=== PATIENT | male | born 1950 | race Caucasian/White ===

== ENCOUNTER 2020-03-13 08:45 | Day surgery (SDC) | payer OTHER | END 2020-03-13 23:35 | disposition home or self-care (01) | LOC: WOUND 08:45 | DX: S30.810A Abrasion of lower back and pelvis, initial encounter (principal); F17.210 Nicotine dependence, cigarettes, uncomplicated; X58.XXXA Exposure to other specified factors, initial encounter | CPT/HCPCS: G0463 ==

== ENCOUNTER 2020-06-08 20:43 | Inpatient (IN) | payer OTHER ==
[~2020-06-08] VITALS: Ht 170.2 cm; Wt 114.8 kg
[2020-06-08 21:22] LABS: BASOPHILS ABSOLUTE AUTO 0.02 K/mm3 (0.00-0.23); BASOPHILS PERCENT AUTO 0 % (0-2); EOSINOPHILS ABSOLUTE AUTO 0.01 K/mm3 (0.00-0.68); EOSINOPHILS PERCENT AUTO 0 % (0-6); Hematocrit 39.4 % (37.0-53.0); Hemoglobin 12.3 g/dL (13.5-17.5); IMMATURE GRAN ABSOLUTE AUTO 0.06 K/mm3 (0.00-0.10); IMMATURE GRAN PERCENT AUTO 1 % (0-1); LYMPHOCYTES ABSOLUTE AUTO 0.96 K/mm3 (0.84-5.20); LYMPHOCYTES PERCENT AUTO 8 % (21-46); MONOCYTES ABSOLUTE AUTO 0.49 K/mm3 (0.16-1.47); MONOCYTES PERCENT AUTO 4 % (4-13); Mean Corpuscular HGB 29.7 pg (26.0-34.0); Mean Corpuscular HGB Conc 31.2 g/dL (31.5-36.5); Mean Corpuscular Volume 95 fL (80-100); Mean Platelet Volume 9.1 fL (9.1-12.4); NEUTROPHILS ABSOLUTE AUTO 10.37 K/mm3 (1.96-9.15); NEUTROPHILS PERCENT AUTO 87 % (41-73); Platelet Count 295 K/mm3 (150-400); RDW Standard Deviation 49.4 fL (35.1-46.3); Red Blood Cell Count 4.14 M/mm3 (4.30-5.90); White Blood Cell Count 11.91 K/mm3 (4.00-11.30)
[2020-06-08] MEDS ORDERED: ATOR20 PO (21:42)
[2020-06-08] MEDS ORDERED: CARV3.125 PO (21:42)
[2020-06-08 21:44] LABS: Alanine Aminotransfer (ALT/SGP 24 U/L (12-78); Albumin, Blood 2.7 g/dL (3.4-5.0); Albumin/Globulin Ratio 0.6 (0.8-1.8); Alk Phos 56 U/L (50-136); Anion Gap 6 mmol/L (6-16); Aspartate Aminotrans (AST/SGOT 20 U/L (12-37); Bilirubin, Total 0.5 mg/dL (0.1-1.0); Blood Urea Nitrogen 17 mg/dL (8-24); Bun/Creatinine Ratio 42.5 (12.0-20.0); CO2, Blood 29 mmol/L (21-32); Calcium, Blood 8.6 mg/dL (8.5-10.1); Chloride, Blood 104 mmol/L (98-108); Globulin, Blood 4.2 g/dL (2.2-4.0); Glomerular Filtration Rate >60 (60-); Glucose, Blood 102 mg/dL (70-99); Magnesium, Blood 1.5 mg/dL (1.6-2.4); Potassium, Blood 2.9 mmol/L (3.5-5.5); Sodium, Blood 139 mmol/L (136-145); Total Protein, Blood 6.9 g/dL (6.4-8.2); Troponin I <0.015 ng/mL (0.000-0.040)
[2020-06-08] MEDS ORDERED: DOXE25 PO (21:45)
[2020-06-08] MEDS ORDERED: GABA300 PO (21:46)
[2020-06-08] MEDS ORDERED: CODACE30 PO (21:49)
[2020-06-08 21:53] LABS: PCO2 Arterial 57.3 mmHg (35-45); PO2 Arterial 85.6 mmHg (80-100); pH Blood Arterial 7.33 (7.35-7.45)
[2020-06-08 22:20] LABS: Influenza A, PCR Negative (NEGATIVE); Influenza B, PCR Negative (NEGATIVE); Resp Syncytial Virus, PCR Negative (NEGATIVE); SARS-Cov-2 (COVID-19) PCR, MMC Negative (NEGATIVE)
--- NOTE | 2020-06-09 02:19 | NUR ---
ASSUMED CARE OF PATIENT AT [facility] 0037 FROM ED RN KADE. PATIENT ARRIVED TO UNIT VIA STRETCHER; TRANSFER VIA SLIDE SHEET AND MAX ASSIST FROM ED TO PCU STRETCHER. PATIENT DROWSY; FALLS ASLEEP MID SENTENCE; ALERT AT TIMES. PATIENT DENIES PAIN, DIZZINESS OR NAUSEA. PATIENT REPORT NUMBNESS TO HANDS OFF AND ON. NSR ON TELE; OXYGEN SATURATION ABOVE 90% ON 4LPM VIA NC. SEPSIS BOLUS STARTED. PHOTOS TAKEN OF LEGS; ADMITTED FOR CELLULITIS. PATIENT REPORTS NOT ABLE TO VOID AT THIS TIME; ATTENDS IN PLACE DRY. ADMISSION COMPLETE. PATIENT CURRENTLY RESTING IN BED; CALL LIGHT IN REACH; BED IN LOWEST POSISTION; BED ALARM ON.
[2020-06-09 04:14] LABS: BASOPHILS ABSOLUTE AUTO 0.06 K/mm3 (0.00-0.23); BASOPHILS PERCENT AUTO 1 % (0-2); EOSINOPHILS ABSOLUTE AUTO 0.04 K/mm3 (0.00-0.68); EOSINOPHILS PERCENT AUTO 0 % (0-6); Hematocrit 44.2 % (37.0-53.0); Hemoglobin 12.9 g/dL (13.5-17.5); IMMATURE GRAN PERCENT AUTO 1 % (0-1); LYMPHOCYTES ABSOLUTE AUTO 0.87 K/mm3 (0.84-5.20); LYMPHOCYTES PERCENT AUTO 7 % (21-46); MONOCYTES ABSOLUTE AUTO 0.39 K/mm3 (0.16-1.47); MONOCYTES PERCENT AUTO 3 % (4-13); Mean Corpuscular HGB 29.6 pg (26.0-34.0); Mean Corpuscular HGB Conc 29.2 g/dL (31.5-36.5); Mean Platelet Volume 9.2 fL (9.1-12.4); NEUTROPHILS ABSOLUTE AUTO 11.22 K/mm3 (1.96-9.15); NEUTROPHILS PERCENT AUTO 88 % (41-73); Platelet Count 281 K/mm3 (150-400); RDW Coefficient Variation 14.2 % (11.7-14.2); RDW Standard Deviation 53.6 fL (35.1-46.3); Red Blood Cell Count 4.36 M/mm3 (4.30-5.90); White Blood Cell Count 12.68 K/mm3 (4.00-11.30)
[2020-06-09 04:19] LABS: Mean Corpuscular Volume 101 fL (80-100)
[2020-06-09 04:34] LABS: Alanine Aminotransfer (ALT/SGP 29 U/L (12-78); Albumin, Blood 2.6 g/dL (3.4-5.0); Albumin/Globulin Ratio 0.6 (0.8-1.8); Alk Phos 66 U/L (50-136); Anion Gap 5 mmol/L (6-16); Aspartate Aminotrans (AST/SGOT 33 U/L (12-37); Bilirubin, Total 0.5 mg/dL (0.1-1.0); Blood Urea Nitrogen 15 mg/dL (8-24); Bun/Creatinine Ratio 44.5 (12.0-20.0); CO2, Blood 29 mmol/L (21-32); Calcium, Blood 8.3 mg/dL (8.5-10.1); Chloride, Blood 105 mmol/L (98-108); Creatinine, Blood 0.34 mg/dL (0.60-1.20); Globulin, Blood 4.6 g/dL (2.2-4.0); Glomerular Filtration Rate >60 (60-); Glucose, Blood 105 mg/dL (70-99); Magnesium, Blood 2.1 mg/dL (1.6-2.4); Potassium, Blood 3.8 mmol/L (3.5-5.5); Sodium, Blood 139 mmol/L (136-145); Total Protein, Blood 7.2 g/dL (6.4-8.2); Troponin I <0.015 ng/mL (0.000-0.040)
--- NOTE | 2020-06-09 04:56 | NUR ---
PATIENT CALLED TO REPORT FENTANYL GIVEN <30 MINUTES AGO IS NOT LONGER HELPING; PAIN IN LEFT FOOT RELATED TO CELLULITIS. PLACED CALL TO HOSPITALIST; WAITING CALL BACK.
--- NOTE | 2020-06-09 06:02 | NUR ---
PAIN CONTROLLED WITH DILAUDID. PATIENT SLEEPING. SLEPT ABOUT FOUR HOURS LAST NIGHT. VSS.
[2020-06-09 09:18] LABS: Source, Urine Catheter
[2020-06-09 09:23] LABS: Appearance, Urine Hazy (Clear); Blood, Urine 2+ (Neg); Color, Urine Yellow (P-Yellow); Glucose Qualitative, Urine Neg (Neg); Ketones, Urine 1+ (Neg); Leukocyte Esterase, Urine 2+ (Neg); Nitrite, Urine Pos (Neg); Protein, Urine 2+ (Neg); Specific Gravity, Urine 1.025 (1.003-1.022); Urobilinogen, Urine 2+ (Normal)
[2020-06-09 09:45] LABS: Bilirubin, Urine 1+ (Neg)
[2020-06-09 09:52] LABS: Squamous Epithelial Cells Rare /hpf (Few); White Blood Cells, Urine 25-50 /hpf (0-5)
[2020-06-09 09:53] LABS: Bacteria Many /hpf
--- NOTE | 2020-06-09 19:23 | NUR ---
SHIFT SUMMARY: PT LEVEL OF ALERTNESS IMPROVED T/OUT SHIFT. PT NOW A&OX4, RESP EVEN AND UNLABORED, PT TRANSITIONED TO ROOM AIR AND TOLERATING WELL. SINUS RHYTHM ON MONITOR. PT FOUND TO BE FEBRILE IN AFTERNOON, MEDICATED PER EMAR. SEPSIS FLUID INFUSION COMPLETE THIS AM, MAINTENANCE FLUIDS INFUSING W/OUT DIFFICULTY. PT RESTING QUIETLY IN BED WITH TV ON. BEDSIDE REPORT GIVEN TO MEGAN MEMBRENO.
--- NOTE | 2020-06-10 05:48 | NUR ---
SHIFT SUMMARY NO ACUTE CHANGES THIS SHIFT. VSS. PT REMAINS AXO. REMAINS IN SR WITH PAC'S. L LEG AND R FOOT REMAIN SWOLLEN AND RED, PT DOESN'T C/O OF PAIN OFTEN TO THESE AREAS BUT IT IS NOTED. PT WAS ON RA AT BEGINNING OF SHIFT BUT HAS REQUIRED 2-3L NC TOWARDS END OF SHIFT. NO CHANGE IN LUNG SOUNDS NOTED. PT BEING TURNED WHEN ALLOWING. POWERGLIUDE REMAINS PATENT AND DRAWING BLOOD. REMAINS CONTINENT, SMALL VOIDS. OTHERWISE, PT RESTING IN ROOM. USES CALL LIGHT APPROIPRIATELY. WILL CONTINUE TO MONITOR UNTIL SHIFT CHANGE.
--- NOTE | 2020-06-10 18:07 | NUR ---
SHIFT SUMMARY; ASSUMED CARE AT 0700, REPORT FROM MEGAN ARAMBULA. A/A/OX4, 3L 02 VIA ME, LUNGS CLEAR TO WHEEZY IN MID MORNING. LASIX GIVEN PER ORDERS. NS AT 75ML/HR PER ORDERS. BILATERAL LLE REDNESS AND SWELLING. STATUS CHANGED TO MEDICAL TODAY, VSS, NO ACUTE MEDICAL CHANGES, WILL CONTINUE TO MONITOR AND TREAT UNTIL CHANGE OF SHIFT.
--- NOTE | 2020-06-10 20:10 | NUR ---
TRANSFER FROM PCU PT ARRIVED TO 356 @1999 FROM [facility] 10. RECIEVED REPORT FROM TYESHA GUZMAN. REPORTS 12/16 PAIN IN LLE. WILL MEDICATE & MONITOR PT.
--- NOTE | 2020-06-10 20:58 | NUR ---
TRANSFER TO MEDICAL FLOOR SHIFT START: PT AXO. ON 2LNC, NS INFUSING PER EMAR INTO POWERGLIDE. STATES BEING COMFORTABLE IN BED. CONTINUES WITH SWELLING/REDNESS DUE TO CELLULITIS IN L LEG AND R FOOT. OTHERWISE PT IN ROOM WATCHING TV. REPORT CALLED TO CAROLA ESPINAL. PT TRANSPORTED TO [facility] WITH ALL MEDS, BELONGINGS, AND CHART BY [employer] SYSTEMS MANAGER'S.
--- NOTE | 2020-06-11 07:43 | NUR ---
SHIFT SUMMARY AOX4. FOLLOWS DIRECTIONS. HAS SLURRED SPEECH BECAUSE HE DOESN'T HAVE TEETH. VSS. PT ON 2L O2 c SPO2 >90% (RA @BASELINE), PT DESAT TO LOW 70'S WHEN NC TAKEN OFF, SPO2 INCREASED ABOVE 90% WITHIN MIN OF REAPPLYING O2. LUNGS HAVE EXPIRATORY WHEEZES & CRACKLES IN BASES. PT DIAPHORETIC. REPORTING HUFFMAN T/O NIGHT. HAS +3/4 EDEMA IN LLE & +2 EDEMA IN RLE, ALONG c GENERALIZED EDEMA T/O BODY. INFORMED DR CHANCE & HE WAS CONCERED PT WAS FLUID OVERLOADED, HE DC'D IV FLUIDS & ORDERED A OT DOSE 60MG IV LASIX. PT HAS VOIDED ROUGHLY 1250ML SINCE LASIX. LLE IS RED UP TO MID THIGH, HOT TO TOUCH, SWOLLEN, PAINFUL & I OUTLINED c MARKER TO MAKE SURE REDNESS WASN'T INCREASING. CALL LIGHT IN REACH & PT ABLE TO MAKE NEEDS KNOWN.
[2020-06-11 08:15] LABS: Anion Gap 2 mmol/L (6-16); Blood Urea Nitrogen 14 mg/dL (8-24); Bun/Creatinine Ratio 39.5 (12.0-20.0); CO2, Blood 34 mmol/L (21-32); Calcium, Blood 8.2 mg/dL (8.5-10.1); Chloride, Blood 102 mmol/L (98-108); Creatinine, Blood 0.35 mg/dL (0.60-1.20); Glomerular Filtration Rate >60 (60-); Glucose, Blood 93 mg/dL (70-99); Potassium, Blood 3.5 mmol/L (3.5-5.5); Sodium, Blood 138 mmol/L (136-145)
--- NOTE | 2020-06-11 14:00 | NUR ---
[facility]IAL [facility] CARE VISIT - REFERRAL RECEIVED FOR S/S MANAGEMENT, DUE TO MEDICALLY FRAGILE STATUS ON ADMIT WITH SEPSIS, LLE EXTREMITY CELLULITIS, ALTERED LOC/ENCEPHALOPATHY, WEAKNESS. PT IS LYING SUPINE, FLAT IN BED. HE IS AWAKE AND ORIENTED DURING MY VISIT. I HAD FOUND A PREVIOUSLY COMPLETED POLST IN PT'S EMR, COMPLETED WITH HIS PCP IN 2016 REQUESTING DNR STATUS AND COMFORT CARE, NO FEEDING TUBE OR ARTIFICIAL NUTRITION/HYDRATION. PT REPORTS HE IS HURTING ALL OVER, ESPECIALLY HIS BACK, "I AM NOT USED TO LYING IN BED LIKE THIS FOR SO LONG". PT REPORTS BEING UP IN A WHEEL CHAIR MOST OF THE TIME AT HOME AT [facility]. HE DOES NOT RECALL SEEING PT/OT WHILE HERE YET. REVIEWED PT'S POLST WITH HIM ALSO AND HE CONFIRMS THAT HE DOES NOT WANT ANY RESUSCITATION EFFORT PERFORMED ON HIM. HE IS AGREEABLE TO THE CURRENT TREATMENT OF HIS SEPSIS AND CELLULITIS. REPORT GIVEN TO RN AND ON MY VISIT. REQUESTED AND OBTAINED VERBAL ORDERS FOR DNR AND PT/OT EVAL AND TREAT. RN IN TO ASSESS PAIN AND MEDICATE FOR PAIN PER eMAR. COPY OF PT'S POLST PROVIDED AND PLACED ON CHART BY RN.
--- NOTE | 2020-06-11 16:26 | NUR ---
PT IS A/OX3, MUMBLES AT TIMES AND IS HARD TO UNDERSTAND, THE PT IS SLOW TO RESPOND, THE PT HAS BEEN BEDREST TODAY PT IS IN WORKING WITH THE PHYSICALTHERAPIST AT THIS TIME, THE PT APPEARS TO BE BREATHING EASILY AT REST WITH O2 @ 2L/MIN, PTS LEFT LEG ELEVATED WHILE IN BED, PT WAS MEDICATED FOR PAIN IN LEFT LEG AND ALL OVER WITH TYLENOL #3, PT HAS A DEVELOPING COCYX SORE AND NEEDS TORN BE REPOSITIONED FREQUANTLY, CALL LIGHT IN REACH, WILL CONTINUE TO MONITOR AND ASSESS FOR CHANGES.
[2020-06-12 05:27] LABS: Anion Gap 2 mmol/L (6-16); Blood Urea Nitrogen 13 mg/dL (8-24); Bun/Creatinine Ratio 33.9 (12.0-20.0); CO2, Blood 38 mmol/L (21-32); Calcium, Blood 8.8 mg/dL (8.5-10.1); Chloride, Blood 98 mmol/L (98-108); Creatinine, Blood 0.38 mg/dL (0.60-1.20); Glomerular Filtration Rate >60 (60-); Glucose, Blood 88 mg/dL (70-99); Potassium, Blood 3.5 mmol/L (3.5-5.5); Sodium, Blood 138 mmol/L (136-145)
--- NOTE | 2020-06-12 05:43 | NUR ---
SHIFT SUMMARY- PT. A&OX3, SPEECH GARBLED, CAN BE DIFFICULT TO UNDERSTAND. LLE RED AND SWOLLEN, C/O PAIN 02/15. MEDICATED WITH DILAUDID PER ORDER WITH GOOD EFFECT. PT. ASLEEP MOST OF THE NIGHT, NO APPARENT DISTRESS NOTED. USES URINAL WHILE IN BED WITH ASSISTANCE. PT. APPEARS TO BE DEVELOPING SORE ON COCCYX, REFUSING TO BE REPOSITIONED. ENCOURAGED PT. TO HAVE PILLOW PLACED ON ONE SIDE OF HIP TO HELP REDUCE PRESSURE OFF OF HIS BOTTOM. PT. AGREED, REPOSITIONED ONTO RT SIDE. DENIED ANY OTHER NEEDS DURING THE NIGHT, VSS. CALL LIGHT WITHIN REACH AND SIDE RAILS UPX2. WILL CONT TO MONITOR.
--- NOTE | 2020-06-12 09:45 | NUR ---
TELEPHONE ORDER FROM DR. RICHTER 06/10 AT 0844 ENTERED UNDER THE WRONG PROVIDER, UPDATED AT THIS TIME.
--- NOTE | 2020-06-12 16:16 | NUR ---
PT IS A/OX3, PLEASANT AND COOPERATIVE, QAGAN TAYAGUNGIN, NEEDS HEARTING AID BATTERIES, PT IS UP WITH ASSIST TO THE BSC, PT DURING THE DAY HAS BEEN USEING THE CALL SYSTEM APPROPRIATLY, PT IS MILDLY SOB AT TIMES WITH ACTIVITY, TODAY IS STILL NEEDING O2 AT 2L/MIN, SPO2 IN THE LOW 90'S WITH O2, APPARANTLY WHEN GETTING UP THIS AM THE PT STUBBED HIS RIGHT LITTLE TOE CAUSING IT TO BLEED UNDER THE NAIL, THE AREA WAS CLEANED AND A BANDAID WAS APPLIED, THE PT DENIED ANY PAIN T/O THE DAY, CALL LIGHT IN REACH, WILL CONTINUE TO MONITOR AND ASSESS FOR CHANGES
--- NOTE | 2020-06-12 16:30 | NUR ---
PT IS A/OX3, PLEASANT AND COOPERATIVE, THE PT IS BEDREST AT THIS TIME, THE PT DECLINES REPOSTIONING FOR MOST OF THE DAY, THE PHYSICAL AND OCCUPATIONAL THERAPIST BOTH WORKED WITH THE PT THE PT WAS COOPERATIVE, THE PT APPEARS TO BE BREATHING EASILY ON O2 AT REST, PT LEFT LEG IS ELEVATED AT ALL TIMES WHILE IN BED, THE SWELLING AND REDNESS IN THE PT LE APPEARS TO BE IMPROVING SOMEWHAT, THE PT WAS MEDICATED FOR PAIN X1 SO FAR TODAY WITH TYLENOL #3, CALL LIGHT IN REACH, WILL CONTINUE TO MONITOR AND ASSESS FOR CHANGES
--- NOTE | 2020-06-13 05:35 | NUR ---
SHIFT SUMMARY- PT. HAD A RESTFUL NIGHT. MEDICATED FOR PAIN WITH TYLENOL #3 1X, WITH GOOD EFFECT. LLE ELEVATED ON PILLOW ALL SHIFT, PT. REFUSES REPOSITIONING. DENIED ANY OTHER NEEDS DURING THE NIGHT. SLEPT WELL T/O THE NIGHT, VSS. CALL LIGHT WITHIN REACH AND SIDE RAILS UPX2. WILL CONT TO MONITOR.
[2020-06-13] MEDS ORDERED: CEPH500 PO (15:45)
[2020-06-13] MEDS ORDERED: CRANBERRY CONC1 EAC1 PO (15:46)
[2020-06-13] MEDS ORDERED: VISBIOME 112.51 EACH PO (15:47)
--- NOTE | 2020-06-13 18:35 | NUR ---
DISCHARGE: transported to SNF left via , REVIEWED: medications, orders, discharge instructions, appointments, removed iv prior to leaving with no difficulties
== END 2020-06-13 17:40 | disposition home or self-care (01) | DRG 871 ==
LOC: ER 20:43 → PCU 23:10 → MEDS 06-10 19:55 → ENPENDDIS 06-13 09:47 → MEDS 06-13 17:40
PROVIDERS: Emergency Medicine; Internal Medicine; ADMIT Family Medicine
DX: A41.9 Sepsis, unspecified organism (principal); G92 Toxic encephalopathy; J96.21 Acute and chronic respiratory failure with hypoxia; L03.116 Cellulitis of left lower limb; N39.0 Urinary tract infection, site not specified; J98.11 Atelectasis; I10 Essential (primary) hypertension; J44.9 Chronic obstructive pulmonary disease, unspecified; R65.20 Severe sepsis without septic shock; E78.5 Hyperlipidemia, unspecified; G89.29 Other chronic pain; Z20.822 Contact with and (suspected) exposure to COVID-19; K21.9 Gastro-esophageal reflux disease without esophagitis; E66.9 Obesity, unspecified; G25.81 Restless legs syndrome; Z68.37 Body mass index [BMI] 37.0-37.9, adult
CPT/HCPCS: 0241U; 36415; 36600; 71045; 80048; 80053; 81001; 82803; 82947; 83605; 83735; 83880; 84145; 84484; 85025; 87040; 87086; 93005; 93010; 93971; 94644; 94761; 96365; 96366; 96367; 96368; 97110; 97162; 97165; 97530; 97535; 99285-25; A9270; C1751; J0690; J0696; J1170; J1650; J1940; J3010; J3370; J3475; J3480; J7030; J7050; J7060

== ENCOUNTER 2020-06-27 00:43 | Day surgery (SDC) | payer OTHER ==
[~2020-06-27 00:43] MED LIST: ATOR20 PO; CARV3.125 PO; CEPH500 PO; CODACE30 PO; CRANBERRY CONC1 EAC1 PO; DOXE25 PO; GABA300 PO; VISBIOME 112.51 EACH PO
== END 2020-06-27 23:50 | disposition home or self-care (01) ==
LOC: WOUND 00:43
DX: L03.116 Cellulitis of left lower limb (principal); R60.9 Edema, unspecified; F17.210 Nicotine dependence, cigarettes, uncomplicated
CPT/HCPCS: G0463

== ENCOUNTER 2020-07-19 09:22 | Inpatient (IN) | payer OTHER, MEDICARE ==
[~2020-07-19] VITALS: Ht 170.2 cm; Wt 103.0 kg
[2020-07-19 10:11] LABS: Hematocrit 44.5 % (37.0-53.0); Hemoglobin 13.6 g/dL (13.5-17.5); Mean Corpuscular HGB 29.2 pg (26.0-34.0); Mean Corpuscular HGB Conc 30.6 g/dL (31.5-36.5); Mean Corpuscular Volume 96 fL (80-100); Mean Platelet Volume 10.3 fL (9.1-12.4); Platelet Count 285 K/mm3 (150-400); RDW Standard Deviation 56.2 fL (35.1-46.3); Red Blood Cell Count 4.65 M/mm3 (4.30-5.90); White Blood Cell Count 10.17 K/mm3 (4.00-11.30)
[2020-07-19 10:31] LABS: BAND PERCENT MAN 9 % (0-8); BASOPHILS PERCENT MAN 0 % (0-2); EOSINOPHILS PERCENT MAN 5 % (0-6); LYMPHOCYTES ABSOLUTE MAN 1.11 K/mm3 (0.84-5.20); LYMPHOCYTES PERCENT MAN 11 % (21-46); MONOCYTES ABSOLUTE MAN 0.71 K/mm3 (0.16-1.47); MONOCYTES PERCENT MAN 7 % (4-13); NEUTROPHILS ABSOLUTE MAN 7.83 K/mm3 (1.96-9.15); SEG NEUTROPHILS PERCENT MAN 68 % (41-73); TOTAL CELLS COUNTED 100
[2020-07-19 10:33] LABS: Alanine Aminotransfer (ALT/SGP 22 U/L (12-78); Albumin, Blood 2.4 g/dL (3.4-5.0); Albumin/Globulin Ratio 0.5 (0.8-1.8); Alk Phos 100 U/L (50-136); Anion Gap 2 mmol/L (6-16); Aspartate Aminotrans (AST/SGOT 43 U/L (12-37); Bilirubin, Total 0.3 mg/dL (0.1-1.0); Blood Urea Nitrogen 17 mg/dL (8-24); Bun/Creatinine Ratio 49.7 (12.0-20.0); CO2, Blood 36 mmol/L (21-32); Calcium, Blood 8.7 mg/dL (8.5-10.1); Chloride, Blood 105 mmol/L (98-108); Creatinine, Blood 0.34 mg/dL (0.60-1.20); Globulin, Blood 4.8 g/dL (2.2-4.0); Glomerular Filtration Rate >60 (60-); Glucose, Blood 88 mg/dL (70-99); Potassium, Blood 3.9 mmol/L (3.5-5.5); Sodium, Blood 143 mmol/L (136-145); Total Protein, Blood 7.2 g/dL (6.4-8.2)
[2020-07-19 10:39] LABS: Source, Urine Catheter
[2020-07-19 10:44] LABS: Blood, Urine 3+ (Neg); Glucose Qualitative, Urine Neg (Neg); Ketones, Urine 1+ (Neg); Leukocyte Esterase, Urine 1+ (Neg); Nitrite, Urine Neg (Neg); Protein, Urine 1+ (Neg); Urobilinogen, Urine 2+ (Normal)
[2020-07-19 11:19] LABS: Bilirubin, Urine 1+ (Neg)
[2020-07-19 11:20] LABS: Appearance, Urine Clear (Clear); Color, Urine Yellow (P-Yellow)
[2020-07-19 11:23] LABS: Bacteria Few /hpf; Squamous Epithelial Cells Rare /hpf (Few)
[2020-07-19] MEDS ORDERED: GUAI600T33 PO (11:24)
[2020-07-19 13:21] LABS: International Normalized Ratio 1.18; Prothrombin Time Results 12.5 Sec (9.7-11.5)
[2020-07-19] MEDS ORDERED: Mirapex1 MG PO (14:02)
[2020-07-19] MEDS ORDERED: OXYACE7.5T PO ×2 (14:02→14:15)
[2020-07-19] MEDS ORDERED: TUMS500 MG PO (14:03)
[2020-07-19] MEDS ORDERED: ACET500 PO (14:03)
[2020-07-19] MEDS ORDERED: FENO145 PO (14:07)
[2020-07-19] MEDS ORDERED: GABA300 PO (14:09)
[2020-07-19] MEDS ORDERED: DOXE75C PO (14:09)
[2020-07-19] MEDS ORDERED: Prilosec10 M1 PO (14:09)
[2020-07-19] MEDS ORDERED: NYSTATIN15 GM TOP (14:10)
[2020-07-19] MEDS ORDERED: Inzo Antifun141.7 GM TOP (14:10)
[2020-07-19] MEDS ORDERED: CARV3.125 PO (14:11)
[2020-07-19] MEDS ORDERED: ATORVASTATIN CA20 MG PO (14:11)
[2020-07-19] MEDS ORDERED: ASPI81CH PO (14:11)
[2020-07-19] MEDS ORDERED: BISMATROL525 MG/15 PO (14:13)
[2020-07-19] MEDS ORDERED: BISA10S PR (14:14)
[2020-07-19] MEDS ORDERED: LOPE2C PO (14:14)
[2020-07-19] MEDS ORDERED: DULCOLAX400 MG/5 M PO (14:15)
[2020-07-19] MEDS ORDERED: ICY HOT TOP (14:16)
[2020-07-19] MEDS ORDERED: PAROEX473 ML PO (14:18)
[2020-07-19 15:14] LABS: U Amphetamine Screen Not Detected; U Barbituate Screen Not Detected; U Benzodiazapine Screen Not Detected; U Buprenorphine Screen Not Detected; U Cannabinoids Screen Not Detected; U Cocaine Screen Not Detected; U Methadone Screen Not Detected; U Methamphetamine Screen Not Detected; U Opiates Screen Not Detected; U Oxycodone Screen DETECTED; U Phencyclidine Screen Not Detected; U Propoxyphene Screen Not Detected
[2020-07-19 17:24] LABS: Influenza A, PCR NEGATIVE (NEGATIVE); Influenza B, PCR NEGATIVE (NEGATIVE); Resp Syncytial Virus, PCR NEGATIVE (NEGATIVE); SARS-Cov-2 (COVID-19) PCR, MMC NEGATIVE (NEGATIVE)
--- NOTE | 2020-07-19 19:00 | NUR ---
ASSUMED CARE NOTE: PT RESPONDS TO VERBAL AND PAINFUL STIMULI, IS ABLE TO FOLLOW COMMANDS. SLOW TO RESPOND QUESTIONS. CONFUSED, UNABLE TO RECALL RECENT EVENTS. ASK THE SAME QUESTIONS OVER AND OVER " WHY AM I HERE", " WHAT IS TODAY" "WHERE ARE WE GOING" PT WILL ALSO YELL OUT FOR HELP. LUNG SOUNDS COARSE T/O, WEAK COUGH NOTED. PT IS IN SR WITH HR IN THE 80'S, BP STABLE. TEMP 97.8. BEAR HUGGER REMOVED. PT HAS A WOUND TO RIGHT FOOT (SALINAS) THAT IS DRAINING PURULENT FLUID. WOUND WAS CLEANED WITH WOUND CLEANSER , ABD PAD AND KERLEX APPLIED. LUTHER PATENT, DRAINING TO GRAVITY.
--- NOTE | 2020-07-19 19:24 | NUR ---
PT SUMMARY: PT ARRIVED IN THE UNIT FROM [facility] VIA STRETCHER, SLIDE TRANSFERRED TP ICU BED REPORT RECEIVED FROM ALYSE Oro RN. PT IS ALERT AND ORIENTED ABLE TO STATE NAME KNOWS WHERE HE'S AT, AT BASELINE, VITALS HRR SR WITH PVC'S AND OCC PAC'S AT 70'S, BP SYSTOLIC 90-110'S, SATS ABOVE 95% ON 2L OF O2, HYPOTHERMIC AT 94.0F VIA TEMP PROBE BEAR HUGGER ON PT CURRENT TEMP NOW AT 96.0F. PT IS FULL CODE REQUESTED TO BE DNR AFTER DISCUSSING CODE STATUS PT STATED HE HAS SIGNED A PAPER AT [facility] NOT TO BE RESCUCITATED WHEN HIS HEART STOPS BEATING. CODE STATUS CHANGED TO DNR PER DR IRCHTER. PT HAS STAGE 2 PRESSURE ULCER ON BOTH BUTTOCKS, ULCERATION ON RIGHT LEG LEFT OPEN TO AIR. PT WAS GIVEN FENTANYL 25MCG DUE TO RIGHT LEG PAIN AND WAS EFFECTIVE, PT REMAINS NPO, NS RUNNING AT 100MLS/HR. LUTHER DRAINING DARK YELLOW URINE VIA GRAVITY, HAD [address] OUT[address] SCAN DONE, AWAITING FOR RESULTS. NO COMPLAINS AT THIS TIME, PT CURRENTLY RESTING, CALL LIGHTS IN REACH REPORT GIVEN TO MATEO GUZMAN
--- NOTE | 2020-07-19 23:25 | NUR ---
RT CALLED TO NT SUCTION PATIENT, MODERATE AMOUNTS OF YELLOW THICK SECTRETIONS NOTED.
[2020-07-20 03:44] LABS: BASOPHILS ABSOLUTE AUTO 0.05 K/mm3 (0.00-0.23); BASOPHILS PERCENT AUTO 1 % (0-2); EOSINOPHILS ABSOLUTE AUTO 0.15 K/mm3 (0.00-0.68); EOSINOPHILS PERCENT AUTO 2 % (0-6); Hematocrit 42.3 % (37.0-53.0); Hemoglobin 12.5 g/dL (13.5-17.5); IMMATURE GRAN ABSOLUTE AUTO 0.11 K/mm3 (0.00-0.10); IMMATURE GRAN PERCENT AUTO 1 % (0-1); LYMPHOCYTES ABSOLUTE AUTO 1.02 K/mm3 (0.84-5.20); LYMPHOCYTES PERCENT AUTO 12 % (21-46); MONOCYTES ABSOLUTE AUTO 0.65 K/mm3 (0.16-1.47); MONOCYTES PERCENT AUTO 8 % (4-13); Mean Corpuscular HGB Conc 29.6 g/dL (31.5-36.5); Mean Corpuscular Volume 98 fL (80-100); NEUTROPHILS ABSOLUTE AUTO 6.29 K/mm3 (1.96-9.15); NEUTROPHILS PERCENT AUTO 76 % (41-73); Platelet Count 288 K/mm3 (150-400); RDW Coefficient Variation 15.7 % (11.7-14.2); RDW Standard Deviation 56.6 fL (35.1-46.3); Red Blood Cell Count 4.31 M/mm3 (4.30-5.90); White Blood Cell Count 8.27 K/mm3 (4.00-11.30)
[2020-07-20 04:05] LABS: Alanine Aminotransfer (ALT/SGP 21 U/L (12-78); Albumin, Blood 2.4 g/dL (3.4-5.0); Albumin/Globulin Ratio 0.6 (0.8-1.8); Alk Phos 89 U/L (50-136); Anion Gap 3 mmol/L (6-16); Aspartate Aminotrans (AST/SGOT 26 U/L (12-37); Bilirubin, Total 0.2 mg/dL (0.1-1.0); Blood Urea Nitrogen 12 mg/dL (8-24); Bun/Creatinine Ratio 31.6 (12.0-20.0); CO2, Blood 34 mmol/L (21-32); Calcium, Blood 8.2 mg/dL (8.5-10.1); Chloride, Blood 111 mmol/L (98-108); Creatinine, Blood 0.38 mg/dL (0.60-1.20); Globulin, Blood 4.1 g/dL (2.2-4.0); Glomerular Filtration Rate >60 (60-); Glucose, Blood 60 mg/dL (70-99); Potassium, Blood 3.3 mmol/L (3.5-5.5); Sodium, Blood 148 mmol/L (136-145); Total Protein, Blood 6.5 g/dL (6.4-8.2)
--- NOTE | 2020-07-20 04:35 | NUR ---
CALLED REGARDING LOW K+ AND GLUCOSE 60. ORDERS GIVEN. WILL RECHECK GLUCOSE IN ONE HOUR
--- NOTE | 2020-07-20 06:37 | NUR ---
SHIFT SUMMARY : NO SIGNIFICANT CHANGES T/O SHIFT. PT REMIANS CONFUSED, HOWEVER COOPRATIVE AND ABLE TO FOLLOW COMMANDS. PT CONTINUES ON 2L OF 02 VIA NC, SPO2 ABOVE 90% PT REQUIRES NT SUCTION TO CLEAR SECRETIONS DUE TO WEAK COUGH. PT IS IN SR WITH PVC'S HR IN THE 80'S, BP STABLE. LUTHER PATENT, DRAINING TO GRAVITY, GOOD URINE OUTPUT THIS SHIFT. PT RECEVING K+ REPLACEMENT.
--- NOTE | 2020-07-20 08:56 | NUR ---
CHECKED PT'S BLOOD SUGAR THIS MORNING IT WAS 60 ON MORNING LABS. CBG WAS 59. INFORMED DR. MASON WHO ORDERED 1 AMP D50 AND THEN SHE WILL REVIEW CHART FOR FURTHER ORDERS. PT TOLERATED D50 WITHOUT PROBLEM AND REPEAT CBP 114. PT'S MENTATION UNCHANGED WHEN HYPOGLYCEMIC. STILL CONFUSED, ASKS THE SAME QUESTIONS REPEATEDLY. OXYGEN TITRATED DOWN BECAUSE PT WAS 100% ON 6L/NC AT START OF SHIFT. DOWN TO 3L/NC CURRENTLY WITH SPO2 MID 90S. FAM, RT NT SUCTIONED PT FOR SPUTUM SAMPLE AND BECAUSE PT WAS COMPLAINING HE COULDN'T BREATHE. ATTEMPTED TO HAVE PT COUGH BUT HIS COUGH IS VERY WEAK. ATTEMPTED ORAL SUCTION WELL PRIOR TO NT SUCTIONING, BUT UNSUCCESSFUL. NT SUCTIONING RESULTED IN LARGE AMT OF THICK, DELAROSA SPUTUM AND PT STATED HIS BREATHING WAS MUCH BETTER AFTERWARDS.
--- NOTE | 2020-07-20 13:33 | NUR ---
REASSESSMENT PT HAS BEEN RESTING IN BED THROUGHOUT THE MORNING. HIS MENTATION HAS IMPROVED SLIGHTLY HE IS ABLE TO SAY HE IS IN THE HOSPITAL, BUT HE RETAINS VERY LITTLE INFORMATION THAT HE IS TOLD. HIS LUNGS ARE COARSE. NT SUCTIONED THIS MORNING AND THEN AGAIN THIS AFTERNOON FOR A LARGE AMT OF THICK, CREAM COLORED SPUTUM. DR. MASON GAVE OK FOR PT TO EAT. PT TOLERATED SIPS OF WATER VIA TEASPOON WITHOUT SIGNS OF ASPIRATION SO GAVE HIM SIPS OF PEPSI THAT HE REQUESTED AND THEN ASSISTED HIM EAT A PUDDING WHILE MAINTAINING ASPIRATION PRECAUTIONS. GAVE PT A BED BATH WHICH HE TOLERATED WELL. SKIN IN HIS R GROIN IS RED WITH A FEW SMALL OPEN AREAS. SKIN O HIS R BUTTOCKS IS RED AND PEELING. CONTINUING TO MONITOR.
--- NOTE | 2020-07-20 16:47 | NUR ---
SHIFT SUMMARY PT HAS BEEN RESTING IN BED THROUGHOUT THE DAY. HE REMAINS WEAK WITH A VERY WEAK COUGH AND HAS REQUIRED NT SUCTIONING 3X TODAY TO CLEAR HIS SECRETIONS. HE STARTED EATING WITH ASPIRATION PRECAUTIONS AND SO FAR HAS SHOWN NO SIGNS OF ASPIRATION. HE WAS EVEN NT SUCTIONED AFTER EATING CHOCOLATE PUTTING AND ALL THE SECRETIONS WERE CREAM COLORED STILL. LUNGS ARE COARSE. OXYGEN WAS TITRATED DOWN TODAY TO 2L/NC. SR, BP STABLE. CONTINUING TO MONITOR.
[2020-07-21 03:26] LABS: BASOPHILS ABSOLUTE AUTO 0.04 K/mm3 (0.00-0.23); BASOPHILS PERCENT AUTO 1 % (0-2); EOSINOPHILS ABSOLUTE AUTO 0.31 K/mm3 (0.00-0.68); EOSINOPHILS PERCENT AUTO 4 % (0-6); Hematocrit 36.6 % (37.0-53.0); Hemoglobin 10.9 g/dL (13.5-17.5); IMMATURE GRAN ABSOLUTE AUTO 0.05 K/mm3 (0.00-0.10); IMMATURE GRAN PERCENT AUTO 1 % (0-1); LYMPHOCYTES ABSOLUTE AUTO 1.28 K/mm3 (0.84-5.20); LYMPHOCYTES PERCENT AUTO 15 % (21-46); MONOCYTES ABSOLUTE AUTO 0.93 K/mm3 (0.16-1.47); MONOCYTES PERCENT AUTO 11 % (4-13); Mean Corpuscular HGB 28.9 pg (26.0-34.0); Mean Corpuscular HGB Conc 29.8 g/dL (31.5-36.5); Mean Corpuscular Volume 97 fL (80-100); Mean Platelet Volume 9.4 fL (9.1-12.4); NEUTROPHILS ABSOLUTE AUTO 5.74 K/mm3 (1.96-9.15); NEUTROPHILS PERCENT AUTO 69 % (41-73); Platelet Count 263 K/mm3 (150-400); RDW Standard Deviation 57.1 fL (35.1-46.3); Red Blood Cell Count 3.77 M/mm3 (4.30-5.90); White Blood Cell Count 8.35 K/mm3 (4.00-11.30)
[2020-07-21 03:41] LABS: Anion Gap 2 mmol/L (6-16); Blood Urea Nitrogen 7 mg/dL (8-24); Bun/Creatinine Ratio 25.3 (12.0-20.0); CO2, Blood 37 mmol/L (21-32); Chloride, Blood 110 mmol/L (98-108); Creatinine, Blood 0.28 mg/dL (0.60-1.20); Glomerular Filtration Rate >60 (60-); Glucose, Blood 99 mg/dL (70-99); Phosphorus, Blood 1.7 mg/dL (2.5-4.9); Potassium, Blood 3.2 mmol/L (3.5-5.5); Sodium, Blood 149 mmol/L (136-145)
--- NOTE | 2020-07-21 06:36 | NUR ---
SHIFT SUMMARY PT ALERT AND ORIENTED TO PERSON AND PLACE. REMAINS WEAK WITH A WEAK COUGH. TOLERATED EVENING PO MEDS WELL, ONE AT A TIME. NT SUCION ONCE LAST NIGHT WITH RESPIRATORY THERAPY, LS COARSE PRIOR TO SUCTION. ON 2LPM O2 VIA NC c O2 SATS >95%. VSS. LUTHER PATENT, DRAINING TO GRAVITY. NO OTHER ACUTE CHANGES DURING THE NIGHT. WILL CONTINUE TO MONITOR.
--- NOTE | 2020-07-21 10:30 | NUR ---
AM NOTE... ASSUMED CARE OF PT AT 0715. PT IS A&Ox4. VS STABLE AT THIS TIME, PT IS ON 2L NC WITH O2 SATS >90%. L/S COARSE T/O, PT HAS VERY WEAK, LOOSE COUGH, NT SUCTIONING PER ORDERS. PT HAS 2+ EDEMA NOTED TO HIS BLE. PT IS IN NSR IN THE 70'S-80'S BP STABLE. BT PRESENT AND HYPOACTIVE, ABD IS SOFT BUT TENDER TO PALP IN THE LEFT QUADRANT. PT HAS BEEN HAVING MULTIPLE LOOSE STOOLS PER NOC SHIFT AND HAS HAD SEVERAL TODAY WELL, STOOL SOFTNER WAS HELD THIS AM. LUTHER IS PATENT AND DRAINING DARK YELLOW URINE TO GRAVITY. PT'S RIGHT LEG HAS A DRESSING THAT IS C/D/I AT THIS TIME. CALL LIGHT IN REACH WILL CONTINUE TO MONITOR.
--- NOTE | 2020-07-21 18:11 | NUR ---
SHIFT SUMMARY... NO ACUTE NEGATIVE CHANGES NOTED THIS SHIFT. PT'S VS HAVE BEEN STABLE. HE HAS BEEN ON 2L NC WITH O2 SATS >90%. PT STILL HAS A VERY WEAK/CONGESTED COUGH, PER PT HE IS UNABLE TO COUGH ANY SPUTUM UP. PT HAS BEEN MEDICATED FOR PAIN ONCE THIS SHIFT WITH GOOD RESULTS. PT HAS BEEN REFUSING 2Q TURNS TO PREVENT FURTHER SKIN ISSUES. PT VERBALIZED HIS UNDERSTANDING OF THE IMPORTANCE OF PREVENTING PRESSURE ULCERS BUT STATED "ITS TO UNCOMFORTABLE TO TURN." PT HAS HAD APROX 6 LOOSE BMS, PT HAS BEEN INCONT FOR MOST OF THE DAY BUT ABLE TO TELL STAFF AFTER HE HAS HAD A BM. CALL LIGHT IN REACH WILL CONTINUE TO MONITOR UNTIL REPORT IS GIVEN TO ONCOMING RN.
--- NOTE | 2020-07-21 21:40 | NUR ---
RECEIVED REPORT FROM FOSTER IN ICU. PATIENT ARRIVED VIA GURNEY, TRANSFERRED WITH TRANSFER SHEET. AOX2, STILL HAVING SOME CONFUSION. DENIES PAIN. LUNG SOUNDS VERY COURSE, COUGH IS MOIST, O2 ON 2 LITERS. USING FLUTTER VALVE. ATTENDS DRY. APPLIED CREAMS PER EMAR. DRESSING TO RLE INTACT. DENIES ANY PAIN OR DISCOMFORT. AGREED WITH ASSESSMENT COMPLETED BY FOSTER IN ICU. BED ALARM ON, CALL LIGHT IN REACH.
--- NOTE | 2020-07-21 22:26 | NUR ---
ASSUMED CARE AT 190/ REPORT CALLED AT 2114 PT LAYING IN BED, IS ALERT AND ORIENTED TO SELF AND PLACE, PT SLIGHTLY DISORIENTED TO TIME; PT IS SLOW TO RESPOND WITH MUMBLING SPEECH BUT DOES USE CALL LIGHT APPROPRIATLY. SPO2 >95% ON 2L NC; RT IN FOR PT TO HAVE CPT DONE. PT HAS WET, WEAK, NONPRODUCTIVE COUGH. AFIBRILE. HR 70'S. BP STABLE. LUTHER IN PLACE AND DRAINING TO GRAVITY. DRESSING TO RLE C/D/I. PT CAN BE IRRITABLE AT TIMES BUT IS REDIRECTABLE. REPORT CALLED TO MED FLOOR NURSE AT 2114 AND PT TRANSFERED TO ROOM 363 AT 2129 VIA ICU BED.
--- NOTE | 2020-07-22 05:42 | NUR ---
SHIFT SUMMARY: ALERT ORIENTED X2. MILD CONFUSION OFF AND ON, FOLLOWS DIRECTION WELL AND HAS BEEN USING CALL LIGHT. GENERALIZED WEAKNESS, HAS TROUBLE TURNING IN BED. HE WAS A ICU TRANSFER AROUND 2134. LUNG SOUNDS ARE VERY COURSE T/O. COUGH IS VERY MOIST AND AUDIBLE BREAKING UP OF SECREATIONS BUT HE IS UNABLE TO GET IT OUT. RT HAS USED VEST TO HELP BREAK IT UP. FLUTTER VALVE ALSO BEEN USED. ON 2 LITERS O2 SATS IN 90'S. EDEMA TO BLE. DRESSING TO WOUND ON THE RLE STILL INTACT. DOES HAVE SKIN BREAKDOWN ON BUTTOCKS AND GROIN AREA. CREAMS WERE APPLIED. REPOSITIONED EVERY 2 HOURS. VITALS WERE SLIGHTLY ELEVATED IN THE 160'S BUT RETURNED TO NORMAL. AFEBRILE. MEDICATED FO HUFFMAN X1. LUTHER STILL IN PLACE, PATIENT REQUEST TO LEAVE IT IN HE IS TWO WEAK TO GET UP AND DOES NOT WANT HIS BOTTOM TO GET WORSE SINCE IT IS IMPROVING. PLAN: ANTIBOTIC TX, SYMPTOMS MANAGMENT, LS CLEAR, COUGH DRY. SKIN HEALED. ABLE TO URINATE ON WON. DC BACK TO [facility] WHEN READY. BED ALARM ON, CALL LIGHT IN REACH
[2020-07-22 06:01] LABS: Anion Gap 4 mmol/L (6-16); Blood Urea Nitrogen 6 mg/dL (8-24); Bun/Creatinine Ratio 28.4 (12.0-20.0); CO2, Blood 37 mmol/L (21-32); Calcium, Blood 8.2 mg/dL (8.5-10.1); Chloride, Blood 107 mmol/L (98-108); Creatinine, Blood 0.21 mg/dL (0.60-1.20); Glomerular Filtration Rate >60 (60-); Glucose, Blood 100 mg/dL (70-99); Potassium, Blood 3.6 mmol/L (3.5-5.5); Sodium, Blood 148 mmol/L (136-145)
--- NOTE | 2020-07-22 15:25 | NUR ---
1455 RETURNED FROM BREAK, CN IN WITH PT REPORTING PT WAS C/O CP, LIPS BLUE, SPO2 72% ON 2.5L O2, LETHARGIC. PT PLACED ON 15L NON REBREATHER MASK, RT AND THIS RN IN TO ASSESS. DR. MASON NOTIFIED AND ORDERS PLACED FOR ABG, EKG, AND TROPONIN STAT. ABG AND EKG OBTAINED, PT REPORTS CP HAS DECREASED SINCE SPO2 HAS IMPROVED, ALERT AT BASELINE. AWAITING ABG RESULTS.
[2020-07-22 15:40] LABS: PCO2 Arterial 73.8 mmHg (35-45); PO2 Arterial 181 mmHg (80-100); pH Blood Arterial 7.36 (7.35-7.45)
--- NOTE | 2020-07-22 16:15 | NUR ---
RT IN WITH PT, CPT RUNNING, PT ON M SERIES BIPAP 19/11 WITH 8L BLEED IN, RT PERFORMING COUGHING AND DEEP BREATHING WELL. CONT SPO2 IN PLACE. PT DENIES CP. LATE ENTRY, DR. MASON NOTIFIED OF ABG AND TROPONIN RESULTS AND RECIEVED ORDERS FOR BIPAP.
--- NOTE | 2020-07-22 19:05 | NUR ---
SHIFT SUMMARY. SEE PREVIOUS NOTES FOR CHANGE IN RESPIRATORY STATUS THIS SHIFT. IV LASIX GIVEN THIS AFTERNOON. PT MAINTAINING SPO2 WITH PREVIOUS INTERVENTIONS, WAS ABLE TO BE TITRATED TO 6L O2 NC DURING DINNER. WAS NOT ABLE TO CHANGE DRESSING TO RLE THIS SHIFT, RN ROMAN NOTIFIED AND REPORTED SHE WOULD ATTEMPT. NO OTHER CHANGES OR CONCERNS.
--- NOTE | 2020-07-22 20:12 | NUR ---
ASSUMPTION OF CARE. MAGALYS JUST FINISHED RECEIVING A BREATHING TREATMENT AND CPT. DURING SHIFT CHANGED I TURNED DOWN HIS OXYGEN TO 4 LITERS, RUNNING SATS OF 94-95% ON THE 4 LITERS PER CONTINUOUS BIOX. DOES HAVE SUCTION AT BEDSIDE. COUGH IS STILL VERY MOIST AND RATTLING. LUNG SOUNDS ARE CLEAR IN UPPER LOBES AND COURSE IN MIDDLE TO LOWER. GAVE FLUTTER VALVE FOR HIM TO USE WELL. DR. JENKINS ARRIVED AT SHIFT CHANGE AND WAS SPEAKING TO GERARDO GUZMAN DAYSHISADAF RN. WE DISCUSSED CATHTEER STAYING IN DUE TO DUIRETIC BEING GIVEN, BREATHING ISSUES AND POOR SKIN QUALITY. SHE AGREED TO LEAVE THE CATHETER IN TILL TOMORROW AND SHE WILL REASSESS. REPORTS HUFFMAN AT THIS TIME, VERY TIRED AND WEAK. CALL LIGHT IS IN REACH. WILL MEDICATE FOR HEADACHE WITH PM MEDS.
--- NOTE | 2020-07-22 23:03 | NUR ---
AFTER GIVING THE PATIENT HIS PM MEDS, CHANGING THE PROB ON THE PULSE OX DUE TO CORD FAILURE, AND WOUND CARE, THE PATIENT DISCUSSED WITH ME THE DIFFICULTY OF REPOSITIONING IN BED THAT HE USES A SLIDE BOARD TO GET INTO BED AND OUT OF BED. HE IS VERY WEAK EVEN IN THE UPPER ARMS. IT TAKES 2-3 PEOPLE TO TURN HIM AND REPOSITION. DISCUSSED WITH HIM USING A LIFT TILL HIS STREGNTH RETURNS. DISCUSSED WITH CHARGE THE NEED TO SWITCH HIM TO LIFT ROOM 364. SHE AGREED, PATIENT WAS TRANSFERRED. LINEN WAS CHANGED. ATTENDS CHANGED, SMEARED STOOL NOTED. USED LIFT TO POSITION PATIENT PROPERLY. IV COMPLETED, SL. CALL LIGHT IS IN REACH.
[2020-07-23 05:47] LABS: PCO2 Arterial 96.9 mmHg (35-45); PO2 Arterial 76.5 mmHg (80-100)
--- NOTE | 2020-07-23 06:11 | NUR ---
RT TALHA ABG CAME BACK WITH CRITICAL CO2OF 96.9 AND BICARB OF 40.3. SHE CAME UP AND PLACED ON BIPAP AT 14/7 WITH 2 LITER BLE[address] IN. CALLED DR. KENT TO INFORM. NO NEW ORDER RECEIVED. CAME BACK TO ROOM TO FIND PATIENT DOWN IN THE 80'S ON SATS. TURNED UP BLEED IN TO 7L BUT HE WAS ONLY HOLDING AT 88-89%. CALLED RT WHO SAID TO TURN UP BLEED IN TILL THEY ARE ABLE TO GET UP TO SEE HIM. ENCOURAGED THE PATIENT TO COUGH AND CLEAR. SOUNDS LIKE HE HAS ALOT OF SECREATIONS THAT NEEDS TO BE CLEARED OUT. WILL SEE IF RT WILL DO A DEEP SUCTION. CALL LIGHT IS IN REACH, WILL CONTINUE TO MONITOR.
[2020-07-23 07:23] LABS: Albumin, Blood 2.1 g/dL (3.4-5.0); Blood Urea Nitrogen 8 mg/dL (8-24); Bun/Creatinine Ratio 21.1 (12.0-20.0); Calcium, Blood 8.4 mg/dL (8.5-10.1); Chloride, Blood 101 mmol/L (98-108); Creatinine, Blood 0.38 mg/dL (0.60-1.20); Glomerular Filtration Rate >60 (60-); Glucose, Blood 83 mg/dL (70-99); Phosphorus, Blood 3.4 mg/dL (2.5-4.9); Sodium, Blood 146 mmol/L (136-145); Troponin I 0.109 ng/mL (0.000-0.040)
[2020-07-23 07:27] LABS: Anion Gap Unable to Calculate mmol/L (6-16); CO2, Blood >45 mmol/L (21-32)
--- NOTE | 2020-07-23 08:13 | NUR ---
PCU TRANSFER- UPON BEDSIDE REPORT THIS AM PT NOTED TO BE ON BIPAP WITH 8L BLEED. FINGERTIPS NOTED TO BE BLUE IN COLOR. ABG C02 96 THIS AM. LS COARSE, MOIST COUGH NOTED. PT FOLLOWS SOME SIMPLE COMMANDS OF SQUEEZING HANDS AND OPENS EYES SLOWLY AND ATTEMPTS TO SAY A FEW WORDS BUT UNABLE TO UNDERSTAND. LUTHER IN PLACE DRAINING ARNAUD URINE. DRESSING TO RLE C/D/I. SPOKE WITH RT WHO RECOMMENDED PT BEING ON VISION BIPAP. SPOKE WITH DR MASON AND ORDERS RECEIVED FOR VISION BIPAP AND TRANSFER TO PCU. PT TRANSFERED TO PCU 11, BEDSIDE REPORT GIVEN TO MEGAN BEJARANO. RT PLACED ON VISION BIPAP IN PCU.
--- NOTE | 2020-07-23 08:32 | NUR ---
AM NOTE PT TO ROOM VIA BED, FROM 364. PT DROWSY/LETHARGIC, RESPONDSING TO VERBAL STIMULI, ORIENTED x1. PT QUICKYL FALLING BACK TO SLEEP. ROD PLACER WEAK, BUT EQUAL. PT TO ROOM AT 8L O2 VIA NC AT 93%, PT PLACED ON BIPAP ON 19/11 50% FIO2, RESP 22-24; LS COARSE T/O; AUDIBLY COARSE; SHALLOW BREATHING NOTED PRIOR TO BIPAP PLACEMENT. BP STABLE, HR NSR PER TELE 70'S. BS HYPOACTIVE x4 QUAD. TRC SWELLING NOTED TO BLE; RIGHT CALF HAS WOUND DRESSING, LLE RED IN COLOR. PT GROIN AND HPIOLITO AREA RED. VSS. NO OTHER ACUTE CHANGES, WILL CONTINUE TO MONITOR.
--- NOTE | 2020-07-23 10:27 | NUR ---
ADMINISTERED AM MEDICATIONS WITH PUDDING; PT APPEARS TO BE SWALLOWING WELL; COUGH WORSENED AFTER ADMINISTRATION. ORAL CARE COMPLETED. RT TO ROOM FOR DEEP SUCTIONS, SECRETIONS BROWN. NOTIFIED DR MASON, PT NPO UNTIL ST FOLLOW UP.
--- NOTE | 2020-07-23 17:57 | NUR ---
SHIFT SUMMARY PT CONTINUES ON BIPAP FOR MAJOIRTY OF SHIFT; ABLE TO TAKE SMALL BREAK ON 3-4L O2 VIA NC. PT MORE ALERT THIS EVENING THEN THIS AM. PT DENIES PAIN, NAUSE AND DIZZINESS. SOB WITH MOVEMENT IN BED. TURNING Q2. VSS. NO OTHER ACUTE CHAGNES NOTED. WILL CONTINUE TO MONITOR UNTIL REPORT GIVEN TO ONCOMING RN.
[2020-07-24 03:40] LABS: BASOPHILS ABSOLUTE AUTO 0.06 K/mm3 (0.00-0.23); BASOPHILS PERCENT AUTO 1 % (0-2); EOSINOPHILS ABSOLUTE AUTO 0.62 K/mm3 (0.00-0.68); EOSINOPHILS PERCENT AUTO 9 % (0-6); Hematocrit 40.3 % (37.0-53.0); Hemoglobin 12.2 g/dL (13.5-17.5); IMMATURE GRAN PERCENT AUTO 2 % (0-1); LYMPHOCYTES PERCENT AUTO 18 % (21-46); MONOCYTES ABSOLUTE AUTO 0.56 K/mm3 (0.16-1.47); MONOCYTES PERCENT AUTO 8 % (4-13); Mean Corpuscular HGB Conc 30.3 g/dL (31.5-36.5); Mean Corpuscular Volume 96 fL (80-100); Mean Platelet Volume 9.8 fL (9.1-12.4); NEUTROPHILS ABSOLUTE AUTO 4.12 K/mm3 (1.96-9.15); NEUTROPHILS PERCENT AUTO 62 % (41-73); Platelet Count 325 K/mm3 (150-400); RDW Coefficient Variation 15.4 % (11.7-14.2); RDW Standard Deviation 54.1 fL (35.1-46.3); Red Blood Cell Count 4.21 M/mm3 (4.30-5.90); White Blood Cell Count 6.66 K/mm3 (4.00-11.30)
[2020-07-24 03:57] LABS: Anion Gap 0 mmol/L (6-16); Blood Urea Nitrogen 9 mg/dL (8-24); Bun/Creatinine Ratio 35.2 (12.0-20.0); CO2, Blood 42 mmol/L (21-32); Calcium, Blood 8.7 mg/dL (8.5-10.1); Chloride, Blood 101 mmol/L (98-108); Creatinine, Blood 0.26 mg/dL (0.60-1.20); Glomerular Filtration Rate >60 (60-); Glucose, Blood 74 mg/dL (70-99); Phosphorus, Blood 2.4 mg/dL (2.5-4.9); Potassium, Blood 4.1 mmol/L (3.5-5.5); Sodium, Blood 143 mmol/L (136-145)
--- NOTE | 2020-07-24 05:10 | NUR ---
SHIFT SUMMARY PT RESTED WELL THROUGH NIGHT - ALERT AND ORIENTED X2. SATS >90% ON 4LNC, PT REFUSING TO WEAR BIPAP AT NIGHT. TELE NSR. NO C/O CHEST PAIN. CPT DONE WITH SOME SECRETIONS COUGHED UP. LUTHER IN PLACE - DRAINING TO GRAVITY, HIPOLITO CARE PERFROMED. INCONTINENT OF BOWEL. ORAL CARE DONE Q4HRS. Q2 TURNS FOR PRESSURE INJURY PREVENTION. VSS. CALL LIGHT WITHIN REACH, BED IN LOWEST POSITION. BED ALARM ON. WILL CONTINUE TO MONITOR.
--- NOTE | 2020-07-24 08:28 | NUR ---
pt laying in bed, RT in room doing cpt, v.s. stable, afebrile, awake, a/ox3, pleasant and cooperative with care, follows commands well, denies pain, he was suctioned, RT removed some white secretions, not a lot, lungs are course t/o, resp even and unlaobored, has a weak cough effort, currently on 4 liters 02 via n/c, hrr, tele in place running sr per monitor, see strip, trace edema noted to all ext, piv site is clear and patent, btx4, abd flat soft nontender, garcia cath draining clear yellow urine, skin c/w/d, has ms and is total care, delbert, call light in reach.
[2020-07-24 09:55] LABS: PCO2 Arterial 57.4 mmHg (35-45); PO2 Arterial 56.3 mmHg (80-100); pH Blood Arterial 7.46 (7.35-7.45)
--- NOTE | 2020-07-24 13:30 | NUR ---
pt sounds wet, spoke with Dr. Burgess about it and requested something to help dry him a bit. she will put orders in. call light in reach.
--- NOTE | 2020-07-24 17:42 | NUR ---
pt was given iv lasix, he sounds less wet, has had a number of loose stools today, no further changes, call light in reach.
[2020-07-25 04:04] LABS: Hematocrit 42.9 % (37.0-53.0); Hemoglobin 13.4 g/dL (13.5-17.5); Mean Corpuscular HGB 28.6 pg (26.0-34.0); Mean Corpuscular HGB Conc 31.2 g/dL (31.5-36.5); Mean Corpuscular Volume 92 fL (80-100); Mean Platelet Volume 9.3 fL (9.1-12.4); Platelet Count 369 K/mm3 (150-400); RDW Coefficient Variation 15.2 % (11.7-14.2); Red Blood Cell Count 4.68 M/mm3 (4.30-5.90); White Blood Cell Count 8.26 K/mm3 (4.00-11.30)
[2020-07-25 04:25] LABS: Albumin, Blood 2.2 g/dL (3.4-5.0); Anion Gap 8 mmol/L (6-16); Blood Urea Nitrogen 8 mg/dL (8-24); Bun/Creatinine Ratio 36.7 (12.0-20.0); CO2, Blood 36 mmol/L (21-32); Calcium, Blood 8.9 mg/dL (8.5-10.1); Chloride, Blood 97 mmol/L (98-108); Creatinine, Blood 0.22 mg/dL (0.60-1.20); Glomerular Filtration Rate >60 (60-); Glucose, Blood 67 mg/dL (70-99); Phosphorus, Blood 2.8 mg/dL (2.5-4.9); Potassium, Blood 3.5 mmol/L (3.5-5.5); Sodium, Blood 141 mmol/L (136-145)
--- NOTE | 2020-07-25 05:10 | NUR ---
SHIFT SUMMARY PT RESTED WELL THROUGH NIGHT. CONFUSION SEEMS TO BE CLEARING UP SOME. PT RECEIVED FULL BED BATH WITH LINEN CHANGE AND ORAL CARE. TELE NSR. SATS >90% ON 2LNC - PT REFUSING TO WEAR BIPAP, BUT AM LABS CONTINUE TO SHOW IMPROVEMENT IN PCO2. DRESSING CHANGED ON RLE - XEROFORM IN PLACE, WRAPPED WITH KERLIX AND THEN ANAM BANDAGE. LUTHER IN PLACE, HIPOLITO CARE PERFORMED, AND DRAINING TO GRAIVTY. ONE SMEAR IN ATTENDS - CHANGED PRN. CBG 64 WITH STRICT NPO - 1/2 AMP D50 GIVEN - SEE EMAR. VSS. CALL LIGHT WTIHIN REACH, BED IN LOWEST POSITION. WILL CONTINUE TO MONITOR.
--- NOTE | 2020-07-25 07:45 | NUR ---
pt laying in bed with eyes closed, wakes easily, lungs are course/wet sounding, very dim in left base, weak cough effort, course/wet sounds are much less than yesterday, is on 2 liters of 02 at this time, sats wnl, hrr, tele in place running sr per monitor, see strip, trace edema noted to all ext, ppp+2, cap refill <3sec, vs stable, afebrile, iv site to lfa/ac is clear and patent, btx4, abd flat soft nontender, voids via garcia cath draining clear yellow urine, skin has a yeast rash to abd folds, otherwise c/w/d, maew but very weak, delbert, call light in reach.
[2020-07-25 17:18] LABS: Magnesium, Blood 1.7 mg/dL (1.6-2.4); Troponin I 0.054 ng/mL (0.000-0.040)
--- NOTE | 2020-07-25 18:32 | NUR ---
pt went into afib rvr, then to svt, has been running in the 130's to 140's, several calls to Dr. rdz orders for ekg, fluid bolus, extra dose of metoprolol, will call with update, pt is not symptomatic, eating dinner, b/p is wnl, call light in reach.
[2020-07-25 20:15] LABS: International Normalized Ratio 1.19; Prothrombin Time Results 12.6 Sec (9.7-11.5)
--- NOTE | 2020-07-26 18:56 | NUR ---
SUMMARY NO ACUTE CHANGES NOTED THROUGH THE DAY. PT REMAINS ON 4 L O2 VIA NC, SPO2 >93%, VSS, NSR. PT CONTINUES TO BE SLEEPY BUT WILL WAKE WITH STIMULATION AND FOR MEALS. PT WAS ABLE TO FEED HIMSELF WITH SUPERVISION. PT WAS UP TO THE CHAIR FOR AWHILE TODAY & WORKED W/PHYSICAL THERAPY. REPORT GIVEN TO ROMAN GUZMAN. CALL LIGHT IN REACH.
--- NOTE | 2020-07-27 06:04 | NUR ---
SHIFT SUMMARY PT A&O X 3; DENIES CHEST PAIN; VSS; O2 SATS >93 ON 3L NC; CRACKLES IN BASES; RT TO BEDSIDE FOR BREATHING TX AND DEEP SUCTIONING; LUTHER PATENT & DRAINING ARNAUD; Q2 TURNS PROVIDED, REFUSED AT TIMES; NO ACUTED CHANGES THIS SHIFT; CALL LIGHT IN REACH; BED IN LOWEST POSITION; WILL CONTINUE TO MONITOR CLOSELY UNTIL HAND OFF TO DAY SHIFT RN.
[2020-07-27 09:11] LABS: BASOPHILS PERCENT AUTO 1 % (0-2); EOSINOPHILS ABSOLUTE AUTO 0.69 K/mm3 (0.00-0.68); EOSINOPHILS PERCENT AUTO 7 % (0-6); Hematocrit 42.2 % (37.0-53.0); Hemoglobin 12.7 g/dL (13.5-17.5); IMMATURE GRAN ABSOLUTE AUTO 0.15 K/mm3 (0.00-0.10); IMMATURE GRAN PERCENT AUTO 2 % (0-1); LYMPHOCYTES ABSOLUTE AUTO 1.44 K/mm3 (0.84-5.20); LYMPHOCYTES PERCENT AUTO 15 % (21-46); MONOCYTES ABSOLUTE AUTO 0.57 K/mm3 (0.16-1.47); MONOCYTES PERCENT AUTO 6 % (4-13); Mean Corpuscular HGB 28.7 pg (26.0-34.0); Mean Corpuscular HGB Conc 30.1 g/dL (31.5-36.5); Mean Corpuscular Volume 96 fL (80-100); Mean Platelet Volume 9.4 fL (9.1-12.4); NEUTROPHILS ABSOLUTE AUTO 6.51 K/mm3 (1.96-9.15); NEUTROPHILS PERCENT AUTO 69 % (41-73); Platelet Count 402 K/mm3 (150-400); RDW Coefficient Variation 15.9 % (11.7-14.2); RDW Standard Deviation 55.5 fL (35.1-46.3); Red Blood Cell Count 4.42 M/mm3 (4.30-5.90); White Blood Cell Count 9.46 K/mm3 (4.00-11.30)
[2020-07-27 09:17] LABS: Mean Platelet Volume 9.5 fL (9.1-12.4); Platelet Count 393 K/mm3 (150-400)
[2020-07-27 09:27] LABS: Albumin, Blood 2.3 g/dL (3.4-5.0); Anion Gap 2 mmol/L (6-16); Blood Urea Nitrogen 9 mg/dL (8-24); Bun/Creatinine Ratio 29.5 (12.0-20.0); CO2, Blood 38 mmol/L (21-32); Calcium, Blood 8.7 mg/dL (8.5-10.1); Chloride, Blood 103 mmol/L (98-108); Creatinine, Blood 0.31 mg/dL (0.60-1.20); Glomerular Filtration Rate >60 (60-); Glucose, Blood 118 mg/dL (70-99); Magnesium, Blood 1.8 mg/dL (1.6-2.4); Phosphorus, Blood 2.7 mg/dL (2.5-4.9); Potassium, Blood 3.3 mmol/L (3.5-5.5); Sodium, Blood 143 mmol/L (136-145)
--- NOTE | 2020-07-27 17:07 | NUR ---
SUMMARY NO ACUTE CHANGES NOTED THROUGH THE DAY. PT HAS BEEN MORE AWAKE & ALERT TO DAY VS YESTERDAY. HE IS ORIENTED X3 & ABLE TO MAKE HIS NEEDS KNOWN WNL. HEPARIN GTT D/C TODAY PER CARDIOLOGY/HOSPITALIST. PT REMAINS IN NSR, NO C/O CP/PRESSURE, VSS, SPO2 >94% ON 4 L O2 VIA NC. PO FLUIDS ENC, PT IS REFUSING MOST OPTIONS DUE TO THICKENED TEXTURES, EDUCATION PROVIDED PRN. PT IS ALSO REFUSING Q2 TURNS, HIPS ADJUSTED PRN TOLERATED BUT PT REFUSES TO GO SIDE TO SIDE. WCTM & REPORT TO NOC RN. CALL LIGHT IN REACH, BED ALARM IS ON FOR SAFETY
--- NOTE | 2020-07-28 05:52 | NUR ---
SHIFT SUMMARY PT A&O X 3; DENIES CHEST PAIN; VSS; NSR NOTED ON TELE, W/ ASSYMPTOMATIC 4 BEAT RUN OF VTACH X 1 THIS SHIFT; O2 SATS >93 ON 3L NC; BPAP IN PLACE FOR SHORT PERIOD, UNABLE TO TOLERATE; RT TO BEDSIDE FOR BREATHING TX; LUTHER PATENT & DRAINING ARNAUD; Q 2 TURNS PROVIDED; ENCOURAGED PO FLUID INTAKE; UNABLE TO DRAW FROM POWERGLIDE; NO ACUTE CHANGES THIS SHIFT; CALL LIGHT IN REACH; BED IN LOWEST POSITION; WILL CONTINUE TO MONITOR CLOSELY UNTIL HAND OFF TO DAY SHIFT RN.
[2020-07-28 06:15] LABS: BASOPHILS ABSOLUTE AUTO 0.08 K/mm3 (0.00-0.23); BASOPHILS PERCENT AUTO 1 % (0-2); EOSINOPHILS ABSOLUTE AUTO 0.68 K/mm3 (0.00-0.68); EOSINOPHILS PERCENT AUTO 7 % (0-6); Hematocrit 40.6 % (37.0-53.0); Hemoglobin 12.4 g/dL (13.5-17.5); IMMATURE GRAN ABSOLUTE AUTO 0.14 K/mm3 (0.00-0.10); IMMATURE GRAN PERCENT AUTO 1 % (0-1); LYMPHOCYTES ABSOLUTE AUTO 1.39 K/mm3 (0.84-5.20); LYMPHOCYTES PERCENT AUTO 14 % (21-46); MONOCYTES ABSOLUTE AUTO 0.76 K/mm3 (0.16-1.47); MONOCYTES PERCENT AUTO 8 % (4-13); Mean Corpuscular HGB Conc 30.5 g/dL (31.5-36.5); Mean Corpuscular Volume 95 fL (80-100); Mean Platelet Volume 9.1 fL (9.1-12.4); NEUTROPHILS ABSOLUTE AUTO 7.03 K/mm3 (1.96-9.15); NEUTROPHILS PERCENT AUTO 70 % (41-73); Platelet Count 438 K/mm3 (150-400); RDW Coefficient Variation 15.8 % (11.7-14.2); RDW Standard Deviation 53.9 fL (35.1-46.3); Red Blood Cell Count 4.27 M/mm3 (4.30-5.90); White Blood Cell Count 10.08 K/mm3 (4.00-11.30)
[2020-07-28 06:31] LABS: Albumin, Blood 2.2 g/dL (3.4-5.0); Anion Gap 1 mmol/L (6-16); Blood Urea Nitrogen 7 mg/dL (8-24); CO2, Blood 41 mmol/L (21-32); Calcium, Blood 8.9 mg/dL (8.5-10.1); Chloride, Blood 103 mmol/L (98-108); Glomerular Filtration Rate >60 (60-); Glucose, Blood 90 mg/dL (70-99); Magnesium, Blood 1.8 mg/dL (1.6-2.4); Phosphorus, Blood 2.5 mg/dL (2.5-4.9); Potassium, Blood 3.9 mmol/L (3.5-5.5); Sodium, Blood 145 mmol/L (136-145)
--- NOTE | 2020-07-28 10:19 | NUR ---
IN TO ASSESS PT. PT HAS BEEN MAD MEDICAL STATUS WITH NO TELEMETRY AT THIS TIME. SELF SUCTIONING AND FLUTTER VALVE ENC.
--- NOTE | 2020-07-28 18:22 | NUR ---
SUMMARY NO ACUTE CHANGES NOTED. PT IS A&O X3, VSS, O2 VIA NC @ 3L. SPEECH THERAPY WAS IN TO SPEAK TO THE PT PER HIS REQUEST, HE WAS NOT WANTING TO BE COMPLIANT WITH SWALLOW PRECAUTIONS DESPITE EDUCATION PROVIDED, AFTERWARDS HE STATED UNDERSTANDING & HAS BEEN MORE COMPLIANT, STATES "I STILL DON'T LIKE THE IDEA BUT OKAY". PT HAS WORKED WITH PT/OT TODAY. HE REMAINS A LIFT PT AT THIS TIME. SELF SUCTIONING & FLUTTER VALVE ENC. WCTM & REPORT TO NOC RN. RESTING QUIETLY, CALL LIGHT IN REACH.
--- NOTE | 2020-07-29 05:59 | NUR ---
SHIFT SUMMARY PT ALERT; FOLLOWS COMMANDS; SOME CONFUSION AND DIFFICULT TO UNDERSTANDS AT TIMES. THERE HAVE BEEN NO ACUTE CHANGES. PT IS SATING WITH >92% ON 3L NC; PT REFUSED TO WEAR BIPAP LAST NIGHT. VITALS HAVE BEEN STABLE. LUTHER IN PLACE AND DRAINING. ATTENDS IN PLACE. PT REFUSED TO BE REPOSITIONED LAST NIGHT, WAS ASKED SEVERAL TIMES IF WE COULD TURN HIM OFF HIS BACK AND REFUSED.
[2020-07-29] MEDS ORDERED: Q-Tussin100 MG/5 M PO (12:07)
[2020-07-29] MEDS ORDERED: IPRAT-ALBUT 0.5-3 ML INH (12:07)
[2020-07-29] MEDS ORDERED: METO25 PO (12:08)
[2020-07-29 12:54] LABS: Influenza A, PCR NEGATIVE (NEGATIVE); Influenza B, PCR NEGATIVE (NEGATIVE); Resp Syncytial Virus, PCR NEGATIVE (NEGATIVE); SARS-Cov-2 (COVID-19) PCR, MMC NEGATIVE (NEGATIVE)
--- NOTE | 2020-07-29 17:14 | NUR ---
DISCHARGE PT ALERT AND ORIENTED. VS STABLE. O2 SATS HAVE REMAINED ABOVE 90% ON 3L NC. DR. SEQUEIRA IN WITH PLANS TO DC TO SNF. PT UP TO CHAIR THIS SHIFT AND BED BATH PROVIDED. REPORT GIVEN TO NURSE AT THE [facility]. PT TAKEN BY GALE.
== END 2020-07-29 17:15 | DRG 177 ==
LOC: ER 09:22 → ICUW 12:42 → PCU 12:42 → ICUE 14:03 → MEDS 07-21 21:33 → PCU 07-23 08:03
PROVIDERS: Emergency Medicine; Internal Medicine; ADMIT Internal Medicine
PROC: 5A09457 Assistance with Respiratory Ventilation, 24-96 Consecutive Hours, Continuous Positive Airway Pressure (ICD-10-PCS; principal; 2020-07-19)
DX: J69.0 Pneumonitis due to inhalation of food and vomit (principal); G92 Toxic encephalopathy; J96.21 Acute and chronic respiratory failure with hypoxia; I21.A1 Myocardial infarction type 2; J96.22 Acute and chronic respiratory failure with hypercapnia; L97.829 Non-pressure chronic ulcer of other part of left lower leg with unspecified severity; L97.819 Non-pressure chronic ulcer of other part of right lower leg with unspecified severity; F11.20 Opioid dependence, uncomplicated; E87.0 Hyperosmolality and hypernatremia; Z66 Do not resuscitate; E78.5 Hyperlipidemia, unspecified; I10 Essential (primary) hypertension; G89.29 Other chronic pain; G25.81 Restless legs syndrome; E66.9 Obesity, unspecified; L89.152 Pressure ulcer of sacral region, stage 2; K21.9 Gastro-esophageal reflux disease without esophagitis; E86.0 Dehydration; B37.2 Candidiasis of skin and nail; E87.6 Hypokalemia; E83.39 Other disorders of phosphorus metabolism; R13.10 Dysphagia, unspecified; T68.XXXA Hypothermia, initial encounter; G35 Multiple sclerosis; F17.210 Nicotine dependence, cigarettes, uncomplicated; G71.00 Muscular dystrophy, unspecified; I48.0 Paroxysmal atrial fibrillation; Z79.82 Long term (current) use of aspirin; Z79.899 Other long term (current) drug therapy; Z99.3 Dependence on wheelchair; Z68.37 Body mass index [BMI] 37.0-37.9, adult
CPT/HCPCS: 0241U; 31720; 36415; 36600; 51702; 70450; 71045; 71046; 74176; 80053; 80069; 81001; 82803; 82947; 83605; 83735; 83880; 84100; 84484; 85025; 85027; 85049; 85610; 85730; 87040; 87070; 87077; 87086; 87106; 87186; 87205; 92526; 92610; 93005; 93010; 93306; 94640; 94660; 94667; 94668; 94760; 94762; 96360; 96361; 97110; 97112; 97163; 97165; 97530; 97535; 99285-25; A9270; C1751; G0008; J0456; J0696; J1644; J1650; J1940; J2310; J2405; J3010; J3475; J3480; J7030; J7040; J7050; J7060; P9046; Q2038

== ENCOUNTER → 2020-08-18 | Outpatient (CLI) | payer OTHER ==
[~2020-08-18] MED LIST changes: +ACET500 PO; +ASPI81CH PO; +ATORVASTATIN CA20 MG PO; +BISA10S PR; +BISMATROL525 MG/15 PO; +DOXE75C PO; +DULCOLAX400 MG/5 M PO; +FENO145 PO; +GUAI600T33 PO; +ICY HOT TOP; +IPRAT-ALBUT 0.5-3 ML INH; +Inzo Antifun141.7 GM TOP; +LOPE2C PO; +METO25 PO; +Mirapex1 MG PO; +NYSTATIN15 GM TOP; +OXYACE7.5T PO; +PAROEX473 ML PO; +Prilosec10 M1 PO; +Q-Tussin100 MG/5 M PO; +TUMS500 MG PO
[2020-08-18 12:45] LABS: Hematocrit 44.6 % (37.0-53.0); Hemoglobin 13.9 g/dL (13.5-17.5); Mean Corpuscular HGB 29.7 pg (26.0-34.0); Mean Corpuscular HGB Conc 31.2 g/dL (31.5-36.5); Mean Corpuscular Volume 95 fL (80-100); Platelet Count 277 K/mm3 (150-400); RDW Coefficient Variation 16.7 % (11.7-14.2); RDW Standard Deviation 58.6 fL (35.1-46.3); Red Blood Cell Count 4.68 M/mm3 (4.30-5.90); White Blood Cell Count 6.43 K/mm3 (4.00-11.30)
[2020-08-18 12:59] LABS: Anion Gap 4 mmol/L (6-16); Blood Urea Nitrogen 14 mg/dL (8-24); Bun/Creatinine Ratio 36.7 (12.0-20.0); CO2, Blood 33 mmol/L (21-32); Calcium, Blood 9.1 mg/dL (8.5-10.1); Chloride, Blood 105 mmol/L (98-108); Creatinine, Blood 0.38 mg/dL (0.60-1.20); Glomerular Filtration Rate >60 (60-); Glucose, Blood 113 mg/dL (70-99); Sodium, Blood 142 mmol/L (136-145)
== END | disposition home or self-care (01) ==
LOC: EDSTATUS 09:50 → LAB RH 11:50
PROVIDERS: Family Medicine
DX: I11.0 Hypertensive heart disease with heart failure (principal); I50.40 Unspecified combined systolic (congestive) and diastolic (congestive) heart failure; J96.02 Acute respiratory failure with hypercapnia; G35 Multiple sclerosis
CPT/HCPCS: 80048; 85027

== ENCOUNTER → 2021-01-21 | Outpatient (CLI) | payer OTHER ==
[2021-01-21 15:04] LABS: Appearance, Urine Clear (Clear); Bilirubin, Urine Neg (Neg); Blood, Urine Neg (Neg); Color, Urine Yellow (P-Yellow); Glucose Qualitative, Urine Neg (Neg); Ketones, Urine Neg (Neg); Leukocyte Esterase, Urine Neg (Neg); Nitrite, Urine Neg (Neg); Protein, Urine 2+ (Neg); Specific Gravity, Urine 1.025 (1.003-1.022); Urobilinogen, Urine 1+ (Normal)
[2021-01-21 16:05] LABS: Bacteria Not Seen /hpf; Calcium Oxalate Crystals Mod /hpf; Mucus Light (0-Heavy); Red Blood Cells, Urine 0-2 /hpf (0-2); Squamous Epithelial Cells Not Seen /hpf (Few); White Blood Cells, Urine 0-2 /hpf (0-5)
== END | disposition home or self-care (01) ==
LOC: EDSTATUS 12:10 → LAB RH 13:19
PROVIDERS: Internal Medicine
DX: N39.0 Urinary tract infection, site not specified (principal)
CPT/HCPCS: 81001; 87077; 87086; 87186

== ENCOUNTER → 2021-01-22 | Outpatient (CLI) | payer OTHER ==
[2021-01-22 09:27] LABS: BASOPHILS ABSOLUTE AUTO 0.09 K/mm3 (0.00-0.23); BASOPHILS PERCENT AUTO 1 % (0-2); EOSINOPHILS ABSOLUTE AUTO 0.46 K/mm3 (0.00-0.68); EOSINOPHILS PERCENT AUTO 6 % (0-6); Hematocrit 46.1 % (37.0-53.0); Hemoglobin 14.7 g/dL (13.5-17.5); IMMATURE GRAN ABSOLUTE AUTO 0.03 K/mm3 (0.00-0.10); IMMATURE GRAN PERCENT AUTO 0 % (0-1); LYMPHOCYTES ABSOLUTE AUTO 1.98 K/mm3 (0.84-5.20); LYMPHOCYTES PERCENT AUTO 25 % (21-46); MONOCYTES ABSOLUTE AUTO 0.59 K/mm3 (0.16-1.47); MONOCYTES PERCENT AUTO 7 % (4-13); Mean Corpuscular HGB 31.1 pg (26.0-34.0); Mean Corpuscular HGB Conc 31.9 g/dL (31.5-36.5); Mean Corpuscular Volume 98 fL (80-100); Mean Platelet Volume 9.6 fL (9.1-12.4); NEUTROPHILS ABSOLUTE AUTO 4.88 K/mm3 (1.96-9.15); NEUTROPHILS PERCENT AUTO 61 % (41-73); Platelet Count 366 K/mm3 (150-400); RDW Standard Deviation 54.1 fL (35.1-46.3); Red Blood Cell Count 4.73 M/mm3 (4.30-5.90); White Blood Cell Count 8.03 K/mm3 (4.00-11.30)
[2021-01-22 10:17] LABS: Alanine Aminotransfer (ALT/SGP 25 U/L (12-78); Albumin, Blood 3.3 g/dL (3.4-5.0); Albumin/Globulin Ratio 0.8 (0.8-1.8); Alk Phos 46 U/L (50-136); Anion Gap 7 mmol/L (6-16); Aspartate Aminotrans (AST/SGOT 23 U/L (12-37); Bilirubin, Total 0.5 mg/dL (0.1-1.0); Blood Urea Nitrogen 16 mg/dL (8-24); Bun/Creatinine Ratio 40.4 (12.0-20.0); CHOL/HDL RATIO 3.5; CO2, Blood 28 mmol/L (21-32); Calcium, Blood 9.2 mg/dL (8.5-10.1); Chloride, Blood 105 mmol/L (98-108); Cholesterol 109 mg/dL (50-200); Globulin, Blood 4.4 g/dL (2.2-4.0); Glomerular Filtration Rate >60 (60-); Glucose, Blood 88 mg/dL (70-99); HDL Cholesterol 31 mg/dL (>39); LDL/HDL RATIO 1.6; Low Density Lipoprotein Chol 49 mg/dL (0-110); Potassium, Blood 3.8 mmol/L (3.5-5.5); Sodium, Blood 140 mmol/L (136-145); Total Protein, Blood 7.7 g/dL (6.4-8.2); Triglycerides 145 mg/dL (30-160); Very Low Density Lipoprot Chol 29 mg/dL (6-32)
== END | disposition home or self-care (01) ==
LOC: LAB RH 08:41 → EDSTATUS 12:11
PROVIDERS: Internal Medicine
DX: J18.9 Pneumonia, unspecified organism (principal); G71.02 Facioscapulohumeral muscular dystrophy; I11.0 Hypertensive heart disease with heart failure; I50.9 Heart failure, unspecified
CPT/HCPCS: 80053; 80061; 83036; 84153; 85025

== ENCOUNTER → 2021-07-02 | Outpatient (CLI) | payer OTHER ==
[2021-07-02 18:18] LABS: Anion Gap 1 mmol/L (6-16); Blood Urea Nitrogen 16 mg/dL (8-24); Bun/Creatinine Ratio 32.9 (12.0-20.0); CHOL/HDL RATIO 3.8; CO2, Blood 34 mmol/L (21-32); Calcium, Blood 9.1 mg/dL (8.5-10.1); Chloride, Blood 105 mmol/L (98-108); Cholesterol 103 mg/dL (50-200); Creatinine, Blood 0.49 mg/dL (0.60-1.20); Glomerular Filtration Rate >60 (60-); Glucose, Blood 97 mg/dL (70-99); HDL Cholesterol 27 mg/dL (>39); LDL/HDL RATIO 1.6; Low Density Lipoprotein Chol 44 mg/dL (0-110); Potassium, Blood 4.3 mmol/L (3.5-5.5); Sodium, Blood 140 mmol/L (136-145); Triglycerides 161 mg/dL (30-160); Very Low Density Lipoprot Chol 32 mg/dL (6-32)
== END | disposition home or self-care (01) ==
LOC: EDSTATUS 11:09 → LAB RH 17:09
PROVIDERS: Internal Medicine
DX: U07.1 COVID-19 (principal); N18.1 Chronic kidney disease, stage 1
CPT/HCPCS: 80048; 80061

== ENCOUNTER 2021-10-24 03:01 | Emergency (ER) | payer OTHER ==
[~2021-10-24] VITALS: Ht 182.9 cm; Wt 136.1 kg
[2021-10-24 07:56] LABS: BASOPHILS ABSOLUTE AUTO 0.07 K/mm3 (0.00-0.23); BASOPHILS PERCENT AUTO 1 % (0-2); EOSINOPHILS ABSOLUTE AUTO 0.39 K/mm3 (0.00-0.68); EOSINOPHILS PERCENT AUTO 5 % (0-6); Hematocrit 48.9 % (37.0-53.0); Hemoglobin 15.5 g/dL (13.5-17.5); IMMATURE GRAN ABSOLUTE AUTO 0.03 K/mm3 (0.00-0.10); IMMATURE GRAN PERCENT AUTO 0 % (0-1); LYMPHOCYTES ABSOLUTE AUTO 2.23 K/mm3 (0.84-5.20); LYMPHOCYTES PERCENT AUTO 31 % (21-46); MONOCYTES ABSOLUTE AUTO 0.57 K/mm3 (0.16-1.47); MONOCYTES PERCENT AUTO 8 % (4-13); Mean Corpuscular HGB 32.4 pg (26.0-34.0); Mean Corpuscular HGB Conc 31.7 g/dL (31.5-36.5); Mean Corpuscular Volume 102 fL (80-100); NEUTROPHILS ABSOLUTE AUTO 3.94 K/mm3 (1.96-9.15); NEUTROPHILS PERCENT AUTO 55 % (41-73); Platelet Count 340 K/mm3 (150-400); RDW Coefficient Variation 14.5 % (11.7-14.2); RDW Standard Deviation 54.4 fL (35.1-46.3); Red Blood Cell Count 4.79 M/mm3 (4.30-5.90); White Blood Cell Count 7.23 K/mm3 (4.00-11.30)
[2021-10-24 08:06] LABS: Albumin, Blood 3.7 g/dL (3.4-5.0); Albumin/Globulin Ratio 0.9 (0.8-1.8); Bilirubin, Total 0.5 mg/dL (0.1-1.0); Calcium, Blood 9.5 mg/dL (8.5-10.1); Creatinine, Blood 0.33 mg/dL (0.60-1.20); Globulin, Blood 4.1 g/dL (2.2-4.0); Potassium, Blood 4.6 mmol/L (3.5-5.5); Total Protein, Blood 7.8 g/dL (6.4-8.2)
[2021-10-24] MEDS ORDERED: DOXY100 PO (09:59)
== END 2021-10-24 11:48 ==
LOC: ER 03:01
PROVIDERS: Emergency Medicine
DX: L03.115 Cellulitis of right lower limb (principal); I10 Essential (primary) hypertension; I25.2 Old myocardial infarction; E66.9 Obesity, unspecified; E78.5 Hyperlipidemia, unspecified; F17.200 Nicotine dependence, unspecified, uncomplicated; Z68.41 Body mass index [BMI] 40.0-44.9, adult; Z79.899 Other long term (current) drug therapy; Z79.82 Long term (current) use of aspirin
CPT/HCPCS: 36415; 80053; 85025; 93971; A9270; J0690

== ENCOUNTER → 2021-12-01 | Outpatient (CLI) | payer OTHER ==
[~2021-12-01] MED LIST changes: +DOXY100 PO
[2021-12-01 09:48] LABS: Hematocrit 46.2 % (37.0-53.0); Hemoglobin 14.8 g/dL (13.5-17.5); Mean Corpuscular Volume 100 fL (80-100); Mean Platelet Volume 10.2 fL (9.1-12.4); Platelet Count 345 K/mm3 (150-400); RDW Coefficient Variation 13.4 % (11.7-14.2); RDW Standard Deviation 49.7 fL (35.1-46.3); Red Blood Cell Count 4.63 M/mm3 (4.30-5.90); White Blood Cell Count 7.84 K/mm3 (4.00-11.30)
[2021-12-01 09:57] LABS: Albumin, Blood 3.1 g/dL (3.4-5.0); Albumin/Globulin Ratio 0.7 (0.8-1.8); Bilirubin, Total 0.7 mg/dL (0.1-1.0); Bun/Creatinine Ratio 36.2 (12.0-20.0); Calcium, Blood 9.2 mg/dL (8.5-10.1); Creatinine, Blood 0.28 mg/dL (0.60-1.20); Globulin, Blood 4.2 g/dL (2.2-4.0); Potassium, Blood 4.5 mmol/L (3.5-5.5); Total Protein, Blood 7.3 g/dL (6.4-8.2)
== END | disposition home or self-care (01) ==
LOC: LAB RH 07:38 → EDSTATUS 12:16
PROVIDERS: Internal Medicine
DX: I11.0 Hypertensive heart disease with heart failure (principal); I50.9 Heart failure, unspecified; I87.2 Venous insufficiency (chronic) (peripheral); E78.5 Hyperlipidemia, unspecified; M62.81 Muscle weakness (generalized)
CPT/HCPCS: 80053; 85027

== ENCOUNTER 2022-02-27 14:20 | Inpatient (IN) | payer OTHER ==
[~2022-02-27] VITALS: Ht 180.3 cm; Wt 98.8 kg
[2022-02-27 14:50] LABS: Chloride (POC) 99 mmol/L (98-108); Creatinine (POC) 0.3 mg/dL (0.8-1.3); Glucose (ISTAT POC) 111 mg/dL (70-99); Hemoglobin (POC) 15.3 g/dL (13.5-17.5); Potassium (POC) 3.8 mmol/L (3.5-5.5); Sodium (POC) 143 mmol/L (135-148); Total CO2 (POC) 32 mmol/L (21-32)
[2022-02-27 15:00] LABS: Base Excess Venous 8.1 mmol/L; Bicarbonate Venous 29.6 mmol/L (24.0-30.0); PCO2 Venous 63.4 mmHg (38-42); pH Blood Venous 7.34 (7.34-7.37)
[2022-02-27 15:17] LABS: Magnesium, Blood 1.8 mg/dL (1.6-2.4)
[2022-02-27 15:19] LABS: BASOPHILS ABSOLUTE AUTO 0.05 K/mm3 (0.00-0.23); BASOPHILS PERCENT AUTO 1 % (0-2); EOSINOPHILS ABSOLUTE AUTO 0.23 K/mm3 (0.00-0.68); EOSINOPHILS PERCENT AUTO 4 % (0-6); Hematocrit 43.3 % (37.0-53.0); Hemoglobin 13.7 g/dL (13.5-17.5); IMMATURE GRAN ABSOLUTE AUTO 0.04 K/mm3 (0.00-0.10); IMMATURE GRAN PERCENT AUTO 1 % (0-1); LYMPHOCYTES ABSOLUTE AUTO 1.18 K/mm3 (0.84-5.20); LYMPHOCYTES PERCENT AUTO 21 % (21-46); MONOCYTES ABSOLUTE AUTO 0.47 K/mm3 (0.16-1.47); MONOCYTES PERCENT AUTO 8 % (4-13); Mean Corpuscular HGB 30.9 pg (26.0-34.0); Mean Corpuscular HGB Conc 31.6 g/dL (31.5-36.5); Mean Corpuscular Volume 98 fL (80-100); NEUTROPHILS PERCENT AUTO 65 % (41-73); RDW Standard Deviation 54.1 fL (35.1-46.3); Red Blood Cell Count 4.44 M/mm3 (4.30-5.90); White Blood Cell Count 5.57 K/mm3 (4.00-11.30)
[2022-02-27 15:20] LABS: Albumin, Blood 3.2 g/dL (3.4-5.0); Albumin/Globulin Ratio 0.8 (0.8-1.8); Bilirubin, Total 0.2 mg/dL (0.1-1.0); Bun/Creatinine Ratio 57.7 (12.0-20.0); Calcium, Blood 8.9 mg/dL (8.5-10.1); Creatinine, Blood 0.26 mg/dL (0.60-1.20); Potassium, Blood 3.9 mmol/L (3.5-5.5); Thyroid Stimulating Hormone 2.62 uIU/mL (0.360-4.800); Total Protein, Blood 7.2 g/dL (6.4-8.2)
[2022-02-27 15:40] LABS: Mean Platelet Volume 9.8 fL (9.1-12.4); Platelet Count 274 K/mm3 (150-400)
[2022-02-27] MEDS ORDERED: METO50ER PO (15:40)
[2022-02-27] MEDS ORDERED: PRAM.5 PO (15:41)
[2022-02-27] MEDS ORDERED: CEPH500 PO (15:43)
[2022-02-27] MEDS ORDERED: TRAM50 PO (15:45)
[2022-02-27 15:50] LABS: Influenza A, PCR NEGATIVE (NEGATIVE); Influenza B, PCR NEGATIVE (NEGATIVE); Resp Syncytial Virus, PCR NEGATIVE (NEGATIVE); SARS-Cov-2 (COVID-19) PCR, MMC NEGATIVE (NEGATIVE)
[2022-02-27 17:34] LABS: Source, Urine Foley catheter
[2022-02-27 17:53] LABS: Appearance, Urine Hazy (Clear); Bilirubin, Urine Neg (Neg); Blood, Urine 2+ (Neg); Color, Urine Yellow (P-Yellow); Glucose Qualitative, Urine Neg (Neg); Ketones, Urine Neg (Neg); Leukocyte Esterase, Urine 2+ (Neg); Nitrite, Urine Neg (Neg); Protein, Urine 2+ (Neg); Urobilinogen, Urine 2+ (Normal)
[2022-02-27 18:08] LABS: Bacteria Many /hpf; Squamous Epithelial Cells Not Seen /hpf (Few)
[2022-02-27 18:11] LABS: U Amphetamine Screen Not Detected; U Barbituate Screen Not Detected; U Benzodiazapine Screen Not Detected; U Buprenorphine Screen Not Detected; U Cannabinoids Screen Not Detected; U Cocaine Screen Not Detected; U Methadone Screen Not Detected; U Methamphetamine Screen Not Detected; U Opiates Screen Not Detected; U Oxycodone Screen Not Detected; U Phencyclidine Screen Not Detected; U Propoxyphene Screen Not Detected
--- NOTE | 2022-02-27 18:25 | NUR ---
PT ARRIVES TO ICU 7 VIA GURNEY FROM ER. PT A/O TO PERSON AND PLACE. ABLE TO ANSWER QUESTIONS. SPEECH IS A LITTLE SLURRED. INCONTINENT OF BM. PERICARE DONE AND NEW ATTENDS PLACED. PT HAS EXCORIATION TO BUTTOCKS. PLACED BARRIER CREAM. PT HAS DIFFICULTY MOVING R ARM DUE TO ARTHRITIS. HR BRIAN AT TIMES DOWN TO 40'S VERY BRIEFLY WITHOUT SYMPTOMS. PT STATES HE DOES WANT TO BE FULL CODE AND UNDERSTANDS WHAT THAT MEANS. NO SIGN OF DISTRESS.
[2022-02-27 19:18] LABS: Bun/Creatinine Ratio 48.7 (12.0-20.0); Creatinine, Blood 0.27 mg/dL (0.60-1.20); Potassium, Blood 4.2 mmol/L (3.5-5.5)
--- NOTE | 2022-02-27 19:40 | NUR ---
SPOKE TO DR KENT RE PT HAVING EPISODES OF SYMPTOMATIC BRADYCARDIA CAUSING SHORTNESS OF BREATH. EPISODES RESOLVE WITHIN SECONDS AND PT DOES NOT LOSE CONSCIOUSNESS. ORDERS GIVEN. WILL CONTINUE TO MONITOR.
[2022-02-27] MEDS ORDERED: OMEP20ER PO (21:39)
[2022-02-27] MEDS ORDERED: ACET325 PO (21:40)
[2022-02-27] MEDS ORDERED: GABA300 PO (21:41)
[2022-02-28 03:11] LABS: BASOPHILS ABSOLUTE AUTO 0.07 K/mm3 (0.00-0.23); BASOPHILS PERCENT AUTO 1 % (0-2); EOSINOPHILS ABSOLUTE AUTO 0.18 K/mm3 (0.00-0.68); EOSINOPHILS PERCENT AUTO 2 % (0-6); Hematocrit 46.8 % (37.0-53.0); Hemoglobin 14.2 g/dL (13.5-17.5); IMMATURE GRAN ABSOLUTE AUTO 0.01 K/mm3 (0.00-0.10); IMMATURE GRAN PERCENT AUTO 0 % (0-1); LYMPHOCYTES ABSOLUTE AUTO 1.22 K/mm3 (0.84-5.20); LYMPHOCYTES PERCENT AUTO 14 % (21-46); MONOCYTES ABSOLUTE AUTO 0.82 K/mm3 (0.16-1.47); MONOCYTES PERCENT AUTO 9 % (4-13); Mean Corpuscular HGB 31.2 pg (26.0-34.0); Mean Corpuscular HGB Conc 30.3 g/dL (31.5-36.5); Mean Platelet Volume 9.4 fL (9.1-12.4); NEUTROPHILS ABSOLUTE AUTO 6.63 K/mm3 (1.96-9.15); NEUTROPHILS PERCENT AUTO 74 % (41-73); Platelet Count 221 K/mm3 (150-400); RDW Coefficient Variation 14.9 % (11.7-14.2); RDW Standard Deviation 57.1 fL (35.1-46.3); Red Blood Cell Count 4.55 M/mm3 (4.30-5.90); White Blood Cell Count 8.93 K/mm3 (4.00-11.30)
[2022-02-28 03:13] LABS: Mean Corpuscular Volume 103 fL (80-100)
[2022-02-28 03:30] LABS: Albumin, Blood 3.1 g/dL (3.4-5.0); Albumin/Globulin Ratio 0.8 (0.8-1.8); Bilirubin, Total 0.4 mg/dL (0.1-1.0); Bun/Creatinine Ratio 40.6 (12.0-20.0); Calcium, Blood 8.8 mg/dL (8.5-10.1); Creatinine, Blood 0.27 mg/dL (0.60-1.20); Globulin, Blood 3.9 g/dL (2.2-4.0); Potassium, Blood 4.5 mmol/L (3.5-5.5)
--- NOTE | 2022-02-28 05:49 | NUR ---
SHIFT SUMMERY PT HAS HAD EPISODES OF BRADYCARDIA W/SOB AND DIZZINESS THROUGHOUT THE NIGHT. ATROPINE WAS GIVEN EARLIER IN THE SHIFT AND PT HAS ONLY HAD ONE EVENT SINCE THAT TIME. BP HAS REMAINED W/IN NORMAL LIMITS. PT IS ON 2LNC W/SATS GREATER THAN 90%. HE IS ALERT AND ORIENTED AND ABLE TO MAKE NEEDS KNOWN. HE REFUSES HAS REFUSED REPOSITIONING AT TIMES STATING IT IS TOO UNCOMFORTABLE FOR HIM TO TOLERATE. FENTANYL WAS GIVEN ONCE FOR PAIN BUT DID LOWER HIS HEART RATE SO IT WASN'T GIVEN AGAIN. HE IS INCONTINENT OF BOWEL AND BLADDER AND IS WEARING AN ATTENDS.
--- NOTE | 2022-02-28 07:58 | NUR ---
PT A&O X 4. REPORTS 10/10 HEAD AND NECK PAIN. ATTEMPTED REPOSITIONING SEVERAL TIMES WITH NO IMPROVEMENT OF SYMPTOMS. PT AFFECT FLAT. HE APPEARS IRRITABLE AND AT TIMES REFUSES CARES. FOR EXAMPLE, PT REFUSES TO BE POSITIONED TO HIS SIDE-DESPITE EXCORIATIONS TO HIPOLITO AREA AND COCCYX. PT IS AWARE OF THE RISK FOR FURTHER SKIN BREAKDOWN, YET HE STILL REFUSES TURNING. GENERAL WEAKNESS NOTED. ECG SHOWS SR WITH PVC'S-RATE 60-80'S. PT DENIES CP OR SOB AT THIS TIME. 2+ LOWER EXTREMITY EDEMA NOTED. FAINT DP/PT PULSES. OCCASIONAL MOIST, NONPRODUCTIVE COUGH. SATS>90% ON 2 LITERS NASAL CANULA. LUNG & HEART SOUNDS ARE DISTANT. ABDOMEN IS OBESE AND SEMI FIRM WITH HYPOACTIVE BT'S X 4. PT IS NPO-HAS HX-OF ASPIRATION PNEUMONIA. WILL REQUEST SPEECH THERAPY CONSULT. PT INCONTINENT OF MALODOROUS, ARNAUD COLORED URINE. PARTIAL BATH, SKIN CARE, NEW ATTENDS PLACED. CALAZIME APPLIED TO EXCORIATIONS TO HIPOLITO AREA AND BUTTOCKS. SKIN IS THIN AND FRAIL. PT CONTINUED TO REPORT 10/10 HEAD AND NECK PAIN-MED WITH FENTANYL 25 MCG IVP X 1-SEE EMAR.
--- NOTE | 2022-02-28 09:28 | NUR ---
DR. QUIÑONES IN TO SEE PT. FULL UPDATE GIVEN. REVIEWED RHYTHM STRIPS WITH DR. QUIÑONES. PT RESTING QUIETLY WITHOUT NOTED DISTRESS AT THIS TIME. STATUS CHANGE TO PCU. SPEECH THERAPY CONSULT PLACED.
--- NOTE | 2022-02-28 12:00 | NUR ---
PT SLEPT OFF AND ON THROUGH OUT THIS AM. PT AWAKENS TO VERBAL STIMULI AND IS A&OX4. PT REPORTS RETURN OR 10/10 "GENERALIZED" PAIN-MED WITH FENTANYL 25 MCG IVPX1. VS WDL.
--- NOTE | 2022-02-28 16:00 | NUR ---
PT RESTING QUIETLY WHEN NOT DISTURBED. A&OX4 WHILE AWAKE AND AWAKENS EASILY. PT ALLOWED FOR REPOSITIONING TO RIGHT SIDE AFTER HIPOLITO CARE AND ATTENDS CHANGED. VS WDL. SATS>90% ON 2 L NASAL CANULA. NO ACUTE CHANGES. NO NOTED DISTRESS AT THIS TIME.
--- NOTE | 2022-02-28 20:00 | NUR ---
ASSUMED CARE. AOX3, ABLE TO ANSWER QUESTIONS, MAY TAKE HIM A FEW MINUTES BUT HE DOES ANSWER. PUPILS REACTIVE. LUNGS DIMINISHED, ON 2 LITERS BUT HAD TO INCREASE TO 4 LITERS O2 WAS OFF AND HE DESATED TO 88%. DENIES COUGH OR CONGESTION. C/O OF DRY MOUTH AND WANTING SOMETHING TO DRINK. WAS ABLE TO TAKE A FEW SIPS OF WATER WITH NO ASPIRATION NOTED. WILL TALK TO MD ON WATER INTAKE. SINUS ON MONITOR WITH PVC'S. OCCATIONALLY WILL HAVE IRREGULAR RHYTHEM BUT IS ABLE TO GET SELF OUT. ABD SOFT. NO NAUSEA. CONDOM CATH PLACED HE WAS SATURATED OF URINE. SKIN RED AND EXCORIATED FROM INCONTIENCE. EXTREMITY EDEMA X4. REPOSITIONED. WILL CONTINUE TO MONITOR.
--- NOTE | 2022-03-01 06:23 | NUR ---
SHIFT SUMMARY: AOX3, ABLE TO MAKE NEEDS KNOWN. FORGETFUL AND CALLS ALOT DUE TO FORGETFULNESS. LS DIM ON 2L WITH SATS >95%. ABLE TO SWALLOW WATER AND PILLS TODAY AND NO SIGNS OF ASPIRATIONS. SINUS ARRHYTHMIA WIHT RATES 70-100. BP THIS AM HAS BEEN ON THE SOFT SIDE SBP IN THE 80'S BUT MAP HAS REMAINED >60. WHEN HE IS AWAKE HIS BP IS WNL. CONDOM CATH WAS PLACED DUE TO INCONTIENCE AND EXCORIATION IN THE GROIN AND BUTTOCKS. STILL HAD 2 INCONTIENTS BUT IT HAS MOSTLY GONE IN THE BAG. NO OTHER CHANGES THIS SHIFT. WILL REPORT OFF.
--- NOTE | 2022-03-01 07:57 | NUR ---
PT MOANING DURING BEDSIDE REPORT, STATES HE WANTS OUT. HE IS WANTING TO GO HOME. PT GIVEN POSITIVE REINFORCEMENT. LEGS WITH EDEMA AND STASIS SKIN, LEFT FOOT MORE EDEMATOUS THAN RIGHT. CONTINUES TO SAY HE WANTS TO GO.
--- NOTE | 2022-03-01 14:45 | NUR ---
MAGALYS IS RESTING POST LUNCH. HE HAS CALLED TO LET ME KNOW THINGS HE REMEMBERS i.e. HIS BROTHER "MAI" HAS A NEW PHONE NUMBER AND IT IS NOT CORRECT IN HIS PHONE. HE ALSO REMEMBERED THAT HE HAS AN APPOINTMENT ON THE FOR HIS DENTURES, AND HIS DENTURES ARE AT [facility].
--- NOTE | 2022-03-01 15:08 | NUR ---
Initial visit made at lunch time after ST eval and echo done. Pt was cleared for PO intake. Echo results pending. Pt is alert and oriented. He is able to make his needs known. He is reporting discomfort/pain in head and hip. RN in with prn medication per eMAR and we repositioned him to right side earlier. Pt requires assist with feeding due to BUE weakness. He has had a stroke in the past, has been bedbound and residing at [facility] locally. He has multiple comorbidities with chronic cardiopulmonary dx, CVA and sequelea. RN & I fed pt his lunch. I discussed his current reason for admission. Pt states he does not remember why he is here but did remember being told that his heart stopped and CPR was performed. He had been a DNR previously. Pt tells me that he changed his mind and had a new POLST done reflecting his wishes for full code and full tx, which is consistent with our orders here. I inquired regarding his choice of proxy medical decision maker if he was unable to tell us what he wanted. He named his brother, Martine, as his proxy. Martine lives in [place] & pt does not know his phone number but states [facility] has his [employer] contact info for Martine. I made several attempts to get Martine's number from but was put on terminal hold twice and no one answered the phone the third attempt. Pt is anxious to return to /home. RN and CM updated after my visit.
--- NOTE | 2022-03-01 18:25 | NUR ---
MAGALYS WAS RATHER ENGAGING THE LATER PART OF THE SHIFT. HE ONLY TAKES IN A FEW BITES OF HIS MEALS, LIKES HIS PEPSI AND BLACK COFFEE. HE IS FULLY ALERT AND ORIENTED, HE FOLLOWS COMMANDS. HE HAS BEEN VERY UNCOMFORTABLE T/O THE DAY WITH HIS BACK, KNEE, HIP AND HEADACHE. HE CONTINUES WITH CONDOM CATH IN PLACE WITH GOOD URINE OUTPUT, PIV IN LEFT FOREARM. LEGS REMAIN STASIS APPEARING AND EDEMATOUS. HE CONTINUES ON NC @ 2L.
--- NOTE | 2022-03-01 20:21 | NUR ---
ASSESSMENT/ASSUMED CARE PT SITTING UP IN BED C/O PAIN "ALL OVER". C/O IV TO LEFT FOREARM "ITCHING AND BURNING". IV DC'D INTACT. NEW IV 20G PLACED TO RIGHT HAND. PT MED WITH FENTANYL 50 MCQ FOR PAIN. LUNGS CLEAR BUT DECREASED THROUGHTOUT ON 2 LITERS O2 VIA NC. RT GAVE UDN TX. BT+ ABD SOFT/OBESE. CONDOM CATH ON. DRAINING YELLOW URINE. PT BOOSTED AND REPOSITIONED. CALL TO DR KENT REGARDING RESTLESS LEGS AND MEDS. OBTIANED ORDERS.
--- NOTE | 2022-03-01 23:37 | NUR ---
CONDOM CATH OFF. ATTENDS AND LINEN CHANGED. PT REPOSITIONED TO BACK WITH PILLOWS UNDER BOTH HIPS. PT C/O PAIN 10/10 "ALL OVER" MED WITH TYLENOL AND FENTANYL 50 MCQ.
--- NOTE | 2022-03-02 02:50 | NUR ---
PAIN PT C/O HEADACHE. TO EARLY FOR TYLENOL. MED WITH FENTANYL 50 MCQ
--- NOTE | 2022-03-02 05:37 | NUR ---
SHIFT SUMMARY PT RESTING QUIETLY. C/O PAIN "ALL OVER" DURING THE NIGHT, MED WITH TYLENOL AND FENTANYL WITH GOOD RESULTS. TURNED Q2HRS. CONT ON 2 LITERS O2 VIA NC. SPO2 MID TO HIGH 90'S. REPORT TO ON COMING NURSE.
[2022-03-02] MEDS ORDERED: CEFD300 PO (11:53)
[2022-03-02 13:12] LABS: Influenza A, PCR NEGATIVE (NEGATIVE); Influenza B, PCR NEGATIVE (NEGATIVE); Resp Syncytial Virus, PCR NEGATIVE (NEGATIVE); SARS-Cov-2 (COVID-19) PCR, MMC NEGATIVE (NEGATIVE)
--- NOTE | 2022-03-02 16:46 | NUR ---
SUMMARY PT A/O X4. ABLE TO USE CALL LIGHT AND FEED SELF TODAY. CONTINENT OF URINE. PT BACK TO BASELINE. DISCHARGED TO . TAKEN VIA AMBULANCE. NO SIGN OF DISTRESS PT LEAVES THE FACILITY.
== END 2022-03-02 17:30 | DRG 70 ==
LOC: ER 14:20 → ICUE 14:21 → ICUW 14:21 → ICUE 14:21
PROVIDERS: Student in an Organized Health Care Education/Training Program; ADMIT Internal Medicine
PROC: 5A12012 Performance of Cardiac Output, Single, Manual (ICD-10-PCS; principal; 2022-02-27)
DX: G93.41 Metabolic encephalopathy (principal); I46.8 Cardiac arrest due to other underlying condition; J90 Pleural effusion, not elsewhere classified; N39.0 Urinary tract infection, site not specified; R07.9 Chest pain, unspecified; R00.1 Bradycardia, unspecified; Z51.5 Encounter for palliative care; Z20.822 Contact with and (suspected) exposure to COVID-19; I10 Essential (primary) hypertension; E78.5 Hyperlipidemia, unspecified; G89.29 Other chronic pain; G25.81 Restless legs syndrome; K21.9 Gastro-esophageal reflux disease without esophagitis; F17.210 Nicotine dependence, cigarettes, uncomplicated; E87.6 Hypokalemia; E83.42 Hypomagnesemia; R62.7 Adult failure to thrive; I48.0 Paroxysmal atrial fibrillation; Z68.34 Body mass index [BMI] 34.0-34.9, adult; Z90.49 Acquired absence of other specified parts of digestive tract; Z79.82 Long term (current) use of aspirin
CPT/HCPCS: 0241U; 36415; 51701; 70450; 71045; 80047; 80048; 80053; 81001; 82550; 82803; 82947; 83605; 83735; 83880; 84443; 84484; 85014; 85025; 85379; 87077; 87086; 87186; 92610; 92950; 93005; 93010; 93306; 94640; 94664; 94760; 94762; 96374-59; 99285-25; A9270; J0461; J0696; J1650; J1940; J2405; J3010; J3475; J3480; J7030; J7050

== ENCOUNTER 2022-09-26 09:02 | Inpatient (IN) | payer OTHER ==
[~2022-09-26] VITALS: Ht 180.3 cm; Wt 106.8 kg
[~2022-09-26 09:02] MED LIST changes: +ACET325 PO; +CEFD300 PO; +GABA400 PO; +METO50ER PO; +OMEP20ER PO; +PRAM.5 PO; +TRAM50 PO
[2022-09-26] MEDS ORDERED: PRAM.5 PO (09:23)
[2022-09-26 10:15] LABS: BASOPHILS ABSOLUTE AUTO 0.03 K/mm3 (0.00-0.23); BASOPHILS PERCENT AUTO 1 % (0-2); EOSINOPHILS ABSOLUTE AUTO 0.24 K/mm3 (0.00-0.68); EOSINOPHILS PERCENT AUTO 5 % (0-6); Hematocrit 40.3 % (37.0-53.0); Hemoglobin 12.5 g/dL (13.5-17.5); IMMATURE GRAN ABSOLUTE AUTO 0.01 K/mm3 (0.00-0.10); IMMATURE GRAN PERCENT AUTO 0 % (0-1); LYMPHOCYTES ABSOLUTE AUTO 0.95 K/mm3 (0.84-5.20); LYMPHOCYTES PERCENT AUTO 19 % (21-46); MONOCYTES ABSOLUTE AUTO 0.28 K/mm3 (0.16-1.47); MONOCYTES PERCENT AUTO 6 % (4-13); Mean Corpuscular HGB 31.4 pg (26.0-34.0); Mean Corpuscular Volume 101 fL (80-100); Mean Platelet Volume 9.2 fL (9.1-12.4); NEUTROPHILS PERCENT AUTO 70 % (41-73); Platelet Count 197 K/mm3 (150-400); RDW Coefficient Variation 13.6 % (11.7-14.2); RDW Standard Deviation 51.3 fL (35.1-46.3); Red Blood Cell Count 3.98 M/mm3 (4.30-5.90); White Blood Cell Count 5.01 K/mm3 (4.00-11.30)
[2022-09-26 10:41] LABS: Albumin/Globulin Ratio 0.9 (0.8-1.8); Bilirubin, Total 0.4 mg/dL (0.1-1.0); Bun/Creatinine Ratio 30.4 (12.0-20.0); Calcium, Blood 8.7 mg/dL (8.5-10.1); Creatinine, Blood 0.3 mg/dL (0.60-1.20); Globulin, Blood 3.5 g/dL (2.2-4.0); Potassium, Blood 4.2 mmol/L (3.5-5.5); Total Protein, Blood 6.5 g/dL (6.4-8.2)
[2022-09-26 12:02] LABS: Source, Urine Straight Cath
[2022-09-26 12:22] LABS: Bilirubin, Urine Neg (Neg); Blood, Urine 2+ (Neg); Glucose Qualitative, Urine Neg (Neg); Ketones, Urine 1+ (Neg); Leukocyte Esterase, Urine Neg (Neg); Nitrite, Urine Neg (Neg); Protein, Urine 1+ (Neg); Specific Gravity, Urine 1.015 (1.003-1.022); Urobilinogen, Urine 2+ (Normal); pH, Urine 6.5 (5.0-8.0)
[2022-09-26 12:45] LABS: Appearance, Urine Hazy (Clear); Bacteria Rare /hpf; Color, Urine Yellow (P-Yellow); Squamous Epithelial Cells Rare /hpf (Few); White Blood Cells, Urine Not Seen /hpf (0-5)
[2022-09-26 15:21] LABS: Influenza A, PCR NEGATIVE (NEGATIVE); Influenza B, PCR NEGATIVE (NEGATIVE); Resp Syncytial Virus, PCR NEGATIVE (NEGATIVE); SARS-Cov-2 (COVID-19) PCR, MMC NEGATIVE (NEGATIVE)
[2022-09-26 15:59] LABS: Base Excess Venous 12.3 mmol/L; PCO2 Venous 90.9 mmHg (38-42); pH Blood Venous 7.25 (7.34-7.37)
[2022-09-26 19:01] LABS: U Amphetamine Screen Not Detected; U Barbituate Screen Not Detected; U Benzodiazapine Screen Not Detected; U Buprenorphine Screen Not Detected; U Cannabinoids Screen Not Detected; U Cocaine Screen Not Detected; U Methadone Screen Not Detected; U Methamphetamine Screen Not Detected; U Opiates Screen Not Detected; U Oxycodone Screen Not Detected; U Phencyclidine Screen Not Detected; U Propoxyphene Screen Not Detected
[2022-09-26 20:33] VITALS: BP 138/99
[2022-09-26 22:13] LABS: Base Excess Venous 16.6 mmol/L; Bicarbonate Venous 36.9 mmol/L (24.0-30.0); PCO2 Venous 54.5 mmHg (38-42); pH Blood Venous 7.48 (7.34-7.37)
[2022-09-27] VITALS (7 sets, daily range): BP systolic 99–121; BP diastolic 53–79
[2022-09-27 04:44] LABS: BASOPHILS ABSOLUTE AUTO 0.01 K/mm3 (0.00-0.23); BASOPHILS PERCENT AUTO 0 % (0-2); EOSINOPHILS PERCENT AUTO 0 % (0-6); Hematocrit 41.8 % (37.0-53.0); Hemoglobin 13.2 g/dL (13.5-17.5); IMMATURE GRAN ABSOLUTE AUTO 0.02 K/mm3 (0.00-0.10); IMMATURE GRAN PERCENT AUTO 0 % (0-1); LYMPHOCYTES ABSOLUTE AUTO 0.76 K/mm3 (0.84-5.20); LYMPHOCYTES PERCENT AUTO 14 % (21-46); MONOCYTES ABSOLUTE AUTO 0.19 K/mm3 (0.16-1.47); MONOCYTES PERCENT AUTO 4 % (4-13); Mean Corpuscular HGB 31.4 pg (26.0-34.0); Mean Corpuscular HGB Conc 31.6 g/dL (31.5-36.5); Mean Corpuscular Volume 99 fL (80-100); Mean Platelet Volume 9.2 fL (9.1-12.4); NEUTROPHILS ABSOLUTE AUTO 4.39 K/mm3 (1.96-9.15); NEUTROPHILS PERCENT AUTO 82 % (41-73); Platelet Count 203 K/mm3 (150-400); RDW Coefficient Variation 13.3 % (11.7-14.2); RDW Standard Deviation 48.2 fL (35.1-46.3); Red Blood Cell Count 4.21 M/mm3 (4.30-5.90); White Blood Cell Count 5.37 K/mm3 (4.00-11.30)
[2022-09-27 05:01] LABS: Bun/Creatinine Ratio 46.5 (12.0-20.0); Calcium, Blood 9.1 mg/dL (8.5-10.1); Creatinine, Blood 0.3 mg/dL (0.60-1.20); Magnesium, Blood 1.9 mg/dL (1.6-2.4); Potassium, Blood 4.2 mmol/L (3.5-5.5)
--- NOTE | 2022-09-27 05:35 | NUR ---
ARRIVAL TO PCU6/SHIFT SUMMARY PT ARRIVED AT APPROXIMATELY 2014. PT ARRIVED WITH RT AT BEDSIDE MANAGING BIPAP. PT SLID OVER FROM ER GURNEY TO HOSPITAL BED BY 4 CLINICAL STAFF MEMBERS. PT A&Ox3-4, CALLS AND COMMUNCIATES NEEDS APPROPRIATELY. PT IS SLIGHTLY HARD TO UNDERSTAND D/T BIPAP AND MUMBLED SPEECH. BP STABLE, SB-SR 50-60's, DENIES CP/PRESSURE. PT ARRIVED WITH BIPAP SET TO 18/6 WITH A 2L BLEED IN WITH SpO2> 92%. AT THIS TIME BIPAP IS SET TO AVAPS WITH 2L BLEED IN, SpO2> 92%, DENIES SOB. PT INCONTINENT/CONTINENT OF URINE, USES URINAL IN BED WITH ASSISTANCE, ATTENDS IN PLACE. PHOTOS OF WOUNDS IN CHART, PROVIDED WOUND CARE AND REPOSITIONING. NO OTHER EVENTS, WILL REPORT TO ONCOMING RN.
--- NOTE | 2022-09-27 09:46 | NUR ---
ASSUMPTION OF CARE NOTE PT APPEARED TO BE SLEEPING WHEN THIS NURSE WENT INTO TOOM DUE TO SPO2 BEING 85%. THIS NURSE ATTEMPTED TO PLACE CPAP MACHINE ON PT AND PT WOKE AND STATED HE DID NOT WANT TO WEAR CPAP WHILE SLEEPING, SPO2 CAME UP TO 95% WHILE AWAKE, WILL CONTINUE TO MONITOR. THIS NURSE ASSUMED CARE AT APPROX 0930 AND RECIEVED REPORT FROM KAY VICTORIA RN.
--- NOTE | 2022-09-27 13:15 | NUR ---
ASSUMED CARE PT AWAKE AND ALERT. PT RESTING COMFORTABLY IN NO ACUTE DISTRESS. VS STABLE. PT DENIES ANY PAIN. CALL LIGHT IN REACH. WILL CONTINUE TO MONITOR
[2022-09-27] MEDS ORDERED: ELIQUIS5 M2 PO (15:09)
--- NOTE | 2022-09-27 17:09 | NUR ---
UPDATE DC ORDERS PROVIDED. INSTRUCTIONS AND MED REC FAXED TO THE [facility]ICAL [facility]. REPORT CALLED TO NURSE AT THE MEDICAL CENTER. PT AWAITING [facility] TRANSPORTATION BACK TO FACILITY. PT UPDATED ON PLAN OF CARE
--- NOTE | 2022-09-27 23:35 | NUR ---
JOSE PT TRANSFERRED VIA GURNEY WITH [facility]. BELONGINGS SENT WITH PATIENT.
== END 2022-09-27 22:22 | DRG 291 ==
LOC: ER 09:02 → PCU 18:56
PROVIDERS: Nurse Practitioner Acute Care; Student in an Organized Health Care Education/Training Program; ADMIT Internal Medicine
PROC: 5A09357 Assistance with Respiratory Ventilation, Less than 24 Consecutive Hours, Continuous Positive Airway Pressure (ICD-10-PCS; principal; 2022-09-26)
DX: I11.0 Hypertensive heart disease with heart failure (principal); G93.41 Metabolic encephalopathy; J96.21 Acute and chronic respiratory failure with hypoxia; I50.33 Acute on chronic diastolic (congestive) heart failure; J96.22 Acute and chronic respiratory failure with hypercapnia; R47.81 Slurred speech; J44.9 Chronic obstructive pulmonary disease, unspecified; I48.0 Paroxysmal atrial fibrillation; R21 Rash and other nonspecific skin eruption; F17.210 Nicotine dependence, cigarettes, uncomplicated; K21.9 Gastro-esophageal reflux disease without esophagitis; E78.5 Hyperlipidemia, unspecified; G89.29 Other chronic pain; G25.81 Restless legs syndrome; Z20.822 Contact with and (suspected) exposure to COVID-19; B96.20 Unspecified Escherichia coli [E. coli] as the cause of diseases classified elsewhere; Z90.49 Acquired absence of other specified parts of digestive tract; Z79.899 Other long term (current) drug therapy; Z79.82 Long term (current) use of aspirin; Z79.891 Long term (current) use of opiate analgesic; Z79.02 Long term (current) use of antithrombotics/antiplatelets
CPT/HCPCS: 0241U; 36415; 51701; 51798; 70450; 70496; 70498; 71045; 71046; 80048; 80053; 81001; 82550; 82803; 83690; 83735; 83880; 84484; 85025; 87077; 87086; 87186; 93005; 93010; 94640; 94660; 94664; 94760; 94762; 96361-59; 96374-59; 96375-59; 99285-25; A9270; C8929; G0480; J1650; J1940; J2930; J7030; Q9957; Q9967